=== PATIENT | female | born 1975 | race Caucasian/White ===

== ENCOUNTER 2017-02-19 19:20 | Emergency (ER) | payer BC ==
[~2017-02-19] VITALS: Ht 170.2 cm; Wt 102.1 kg
[~2017-02-19 19:20] MED LIST: AC325T GT; ACHD5005 PO; AMT10T PO; IBP600T1 PO; IBUP-30 PO; MELA1TAB9 PO; SUMA1TAB PO
[2017-02-19] MEDS ORDERED: ONDANSETRON 4 MG/2 ML (SDV) Z0FRAN ONE (19:29)
[2017-02-19] MEDS ORDERED: KETOROLAC 30 MG/ML VIAL IVP ONE (19:30)
[2017-02-19] MEDS ORDERED: fentaNYL INJECTION 100 MCG/2 ML AMP IVP ONE ×2 (19:30→19:45)
[2017-02-19] MEDS ORDERED: CITA20TA7 (19:30)
[2017-02-19] MEDS ORDERED: NS IV 1000 ML 1,000 ML IV SCH (19:30)
--- NOTE | 2017-02-19 19:30 | ED Back Pain ---
General Chief Complaint: Back Problems Stated Complaint: BLOOD IN URINE/ABD AND LOWER BACK PAIN Source of Information: Patient Exam Limitations: No Limitations History of Present Illness Time Seen by Provider: 19:29 Initial Comments To ER with blood in her urine, right sided lower abdomen and right low back pain. This began about 3 days prior with pain in the right side of her back. She felt this was musculoskeletal and saw her chiropractor. About 1 hour prior to arrival here the pain became very intense and was associated with vomiting. No fevers or chills. She has a history of a kidney stone about 6 years ago and this feels similar. Location: Lumbar Spine Timing/Duration: 1-2 Days Severity: Moderate Associated Symptoms: denies symptoms Allergies and Home Medications Allergies Uncoded Allergies: CHLORAPREP (Allergy, Unknown, 02/19/17) Home Medications Citalopram Hydrobromide 20 Mg Tablet, #45 (Reported) Hydrocodone/Acetaminophen 1 Each Tablet, 1 EACH PO Q4H PRN for PAIN-MODERATE, # 20 Prescribed by: MARIA FERNANDA VOGT on 02/19/172012 Ondansetron 8 Mg Tab.rapdis, 8 MG PO Q6H, #10 Prescribed by: MARIA FERNANDA VOGT on 02/19/172012 Tamsulosin HCl 0.4 Mg Cap.er.24h, 0.4 MG PO DAILY, #14 Prescribed by: MARIA FERNANDA VOGT on 02/19/172012 Constitutional: see HPI, No chills, diaphoresis EENTM: see HPI Respiratory: no symptoms reported Cardiovascular: no symptoms reported Genitourinary: see HPI, dysuria Musculoskeletal: no symptoms reported Skin: no symptoms reported Psychiatric/Neurological: No Symptoms Reported Past Kgwabwu-Heecsa-Yitcow Hx Patient Social History Recent Foreign Travel: No Contact w/Someone Who Travel: No Immunizations Up To Date Tetanus Booster (TDap): Less than 5yrs PED Vaccines UTD: Yes Surgeries HX Surgeries: Yes (ORAL SURGERY, BACK SURGERY, BREAST AUGMENTATION) Surgeries: Hysterectomy, Orthopedic, Tubal Ligation Respiratory Hx Respiratory Disorders: No Cardiovascular Hx Cardiac Disorders: No Neurological Hx Neurological Disorders: No Reproductive System Hx Reproductive Disorders: Yes (OVARIAN MASS) Female Reproductive Disorders: Ovarian Cyst Genitourinary Hx Genitourinary Disorders: Yes Genitourinary Disorders: Kidney Stones Gastrointestinal Hx Gastrointestinal Disorders: No Musculoskeletal Hx Musculoskeletal Disorders: Yes Endocrine Hx Endocrine Disorders: No HEENT HX ENT Disorders: No Cancer Hx Cancer: No Psychosocial Hx Psychiatric Problems: Yes Behavioral Health Disorders: Anxiety Integumentary HX Skin/Integumentary Disorder: No Blood Transfusions Hx Blood Disorders: No Adverse Reaction to a Blood Tr: No Physical Exam Vital Signs Vital Sign - Last 12Hours 02/19/17 19:30 Temp 97.1 Pulse 86 Resp 18 B/P (MAP) 154/109 Pulse Ox 99 O2 Delivery Room Air Capillary Refill : General Appearance: WD/WN, Moderate Distress, Other (writhing) HEENT: PERRL/EOMI, TMs Normal Neck: Full Range of Motion, Normal Inspection Cardiovascular: Regular Rate, Rhythm, Normal Peripheral Pulses Respiratory: Normal Breath Sounds, No Accessory Muscle Use, No Respiratory Distress Gastrointestinal: Normal Bowel Sounds, Non Tender, Soft Extremity: Normal Capillary Refill, Normal Inspection Neurologic/Psychiatric: Alert, Oriented x3, No Motor/Sensory Deficits Skin: Normal Color, Warm/Dry Progress/Results/Core Measures Results/Orders Lab Results Laboratory Tests Test 02/19/17 19:25 Range/Units White Blood Count 16.3 H 4.3-11.0 10^3/uL Red Blood Count 4.96 4.35-5.85 10^6/uL Hemoglobin 12.9 11.5-16.0 G/DL Hematocrit 41 35-52 % Mean Corpuscular Volume 83 80-99 FL Mean Corpuscular Hemoglobin 26 25-34 PG Mean Corpuscular Hemoglobin Concent 32 32-36 G/DL Red Cell Distribution Width 16.0 H 10.0-14.5 % Platelet Count 648 H 130-400 10^3/uL Mean Platelet Volume 9.4 7.4-10.4 FL Neutrophils (%) (Auto) 59 42-75 % Lymphocytes (%) (Auto) 32 12-44 % Monocytes (%) (Auto) 6 0-12 % Eosinophils (%) (Auto) 2 0-10 % Basophils (%) (Auto) 1 0-10 % Neutrophils # (Auto) 9.7 H 1.8-7.8 X 10^3 Lymphocytes # (Auto) 5.2 H 1.0-4.0 X 10^3 Monocytes # (Auto) 1.0 0.0-1.0 X 10^3 Eosinophils # (Auto) 0.4 H 0.0-0.3 10^3/uL Basophils # (Auto) 0.1 0.0-0.1 10^3/uL Neutrophils % (Manual) 51 % Lymphocytes % (Manual) 43 % Monocytes % (Manual) 0 % Eosinophils % (Manual) 5 % Basophils % (Manual) 1 % Band Neutrophils 0 % Blood Morphology Comment NORMAL Sodium Level 142 135-145 MMOL/L Potassium Level 3.7 3.6-5.0 MMOL/L Chloride Level 106 98-107 MMOL/L Carbon Dioxide Level 25 21-32 MMOL/L Anion Gap 11 5-14 MMOL/L Blood Urea Nitrogen 11 7-18 MG/DL Creatinine 0.82 0.60-1.30 MG/DL Estimat Glomerular Filtration Rate > 60 BUN/Creatinine Ratio 13 Glucose Level 112 H 70-105 MG/DL Calcium Level 10.0 8.5-10.1 MG/DL Total Bilirubin 0.3 0.1-1.0 MG/DL Aspartate Amino Transf (AST/SGOT) 17 5-34 U/L Alanine Aminotransferase (ALT/SGPT) 19 0-55 U/L Alkaline Phosphatase 93 40-136 U/L Total Protein 7.5 6.4-8.2 GM/DL Albumin 4.3 3.2-4.5 GM/DL My Orders Orders - MARIA FERNANDA VOGT APRN Ua Culture If Indicated (02/19/17 19:22) Urine Bedside (02/19/17 19:22) Cbc With Automated Diff (02/19/17 19:28) Comprehensive Metabolic Panel (02/19/17 19:28) Saline Lock/Iv-Start (02/19/17 19:28) Ketorolac Injection (Toradol Injection) (02/19/17 19:30) Fentanyl Injection (Sublimaze Injection (02/19/17 19:30) Ns Iv 1000 Ml (Sodium Chloride 0.9%) (02/19/17 19:30) Ct Abd/Pelvis Wo(Kidney Stone) (02/19/17 19:28) Manual Differential (02/19/17 19:25) Ondansetron Injection (Zofran Injectio (02/19/17 19:29) Ondansetron Injection (Zofran Injectio (02/19/17 19:45) Fentanyl Injection (Sublimaze Injection (02/19/17 19:45) Rx-Ondansetron Po (Rx-Zofran Po) (02/19/17 20:18) Rx-Oxycodone/Apap 5-325 Mg (Rx-Percocet (02/19/17 20:30) Medications Given in ED Current Medications Medications Dose Ordered Sig/Cherry Route Start Time Stop Time Status Last Admin Dose Admin Fentanyl Citrate 50 mcg ONCE ONCE IVP 02/19/17 19:30 02/19/17 19:31 DC 02/19/17 19:36 50 MCG Fentanyl Citrate 50 mcg ONCE ONCE IVP 02/19/17 19:45 02/19/17 19:46 DC 02/19/17 20:07 50 MCG Ketorolac Tromethamine 30 mg ONCE ONCE IVP 02/19/17 19:30 02/19/17 19:31 DC 02/19/17 19:36 30 MG Ondansetron HCl 4 mg STK-MED ONCE .ROUTE 02/19/17 19:29 02/19/17 19:36 DC 02/19/17 19:37 8 MG Vital Signs/I&O Vital Sign - Last 12Hours 02/19/17 19:30 Temp 97.1 Pulse 86 Resp 18 B/P (MAP) 154/109 Pulse Ox 99 O2 Delivery Room Air Diagnostic Imaging Diagonstic Imaging: CT Comments NAME: GERALD STOVER [facility] REC#: [id number] PT STATUS: REG ER : 1975 PHYSICIAN: MARIA FERNANDA VOGT APRN ADMIT DATE: 02/19/17/ER Draft Date of Exam:02/19/17 CT ABD/PELVIS WO(KIDNEY STONE) PROCEDURE: CT urinary tract, rule out kidney stone. TECHNIQUE: Multiple contiguous axial images were obtained through the abdomen and pelvis without the use of intravenous contrast. INDICATION: Abdominal pain. Hematuria. COMPARISON: None. FINDINGS: There is a 4 mm ureteral stone near the right ureterovesicular junction. This results in only mild right ureteropyelocaliectasis. No other renal or ureteral stones. The lung bases are clear. The partially visualized bilateral breast prostheses. The left ovary is mildly enlarged measuring 4.4 x 2.3 cm. Surgical clips in the pelvis. The liver, gallbladder, pancreas, spleen, adrenals, left kidney, left collecting system and appendix are negative. No free intraperitoneal air or fluid. No lymphadenopathy. No evidence of bowel obstruction. Mild right apex lumbar curvature and degenerative changes. The osseous structures are otherwise unremarkable. IMPRESSION: 4 mm ureteral stone near the right UPJ resulting in mild hydronephrosis. No other renal or ureteral stones. Departure Impression Impression: Primary Impression: Right ureteral stone Disposition: 01 HOME, SELF-CARE Condition: Stable Departure-Patient Inst. Decision time for Depature: 20:06 Referrals: CEZAR RUSSO DO (PCP/Family) Primary Care Physician ANA YANEZ MD Patient Instructions: Kidney Stones (DC) Add. Discharge Instructions: 1. Return to ER for any concerns such as fevers, intolerable pain 2. See your doctor this week for a follow up appointment. 3. Take the medications as directed All discharge instructions reviewed with patient and/or family. Voiced understanding. Scripts Sulfamethoxazole/Trimethoprim (Bactrim Ds Tablet) 1 Each Tablet 1 EACH PO BID, #10 TAB Prov: MARIA FERNANDA VOGT APRN 02/19/17 Ondansetron (Zofran Odt) 8 Mg Tab.rapdis 8 MG PO Q6H, #10 TAB Prov: MARIA FERNANDA VOGT APRN 02/19/17 Hydrocodone/Acetaminophen (Cheraw 5-325 Tablet) 1 Each Tablet 1 EACH PO Q4H Y for PAIN-MODERATE, #20 TAB Prov: MARIA FERNANDA VOGT APRN 02/19/17 Tamsulosin HCl (Tamsulosin HCl) 0.4 Mg Cap.er.24h 0.4 MG PO DAILY, #14 CAP Prov: MARIA FERNANDA VOGT APRN 02/19/17 Work/School Note: Work Release Form Date Seen in the Emergency Department: Feb 19, 2017 Return to Work: Feb 22, 2017 Restrictions: No Restrictions MARIA FERNANDA VOGT APRN Feb 19, 2017 19:30
[2017-02-19 19:34] LABS: BASOPHILS # (AUTO) 0.1 10^3/uL (0.0-0.1); BASOPHILS % (AUTO) 1 % (0-10); EOSINOPHILS # (AUTO) 0.4 10^3/uL (0.0-0.3); EOSINOPHILS % (AUTO) 2 % (0-10); LYMPHOCYTES # (AUTO) 5.2 X 10^3 (1.0-4.0); LYMPHOCYTES % (AUTO) 32 % (12-44); MEAN CORPUSCULAR HEMOGLOBIN 26 PG (25-34); MEAN CORPUSCULAR HGB CONC 32 G/DL (32-36); MEAN CORPUSCULAR VOLUME 83 FL (80-99); MEAN PLATELET VOLUME 9.4 FL (7.4-10.4); MONOCYTES % (AUTO) 6 % (0-12); NEUTROPHILS # (AUTO) 9.7 X 10^3 (1.8-7.8); NEUTROPHILS % (AUTO) 59 % (42-75); PLATELET COUNT 648 10^3/uL (130-400); RED BLOOD COUNT 4.96 10^6/uL (4.35-5.85); WHITE BLOOD COUNT 16.3 10^3/uL (4.3-11.0)
[2017-02-19] MEDS ORDERED: ONDANSETRON 4 MG/2 ML (SDV) Z0FRAN IVP ONE (19:45)
[2017-02-19 19:52] LABS: BAND NEUTROPHILS 0 %; LYMPHOCYTES % (MANUAL) 43 %; NEUTROPHILS % (MANUAL) 51 %
[2017-02-19 19:53] LABS: BASOPHILS % (MANUAL) 1 %; EOSINOPHILS % (MANUAL) 5 %
[2017-02-19 19:54] LABS: ALANINE AMINOTRANSFERASE 19 U/L (0-55); ALBUMIN 4.3 GM/DL (3.2-4.5); ANION GAP 11 MMOL/L (5-14); ASPARTATE AMINO TRANSFERASE 17 U/L (5-34); BILIRUBIN,TOTAL 0.3 MG/DL (0.1-1.0); BLOOD UREA NITROGEN 11 MG/DL (7-18); BUN/CREATININE RATIO 13; CARBON DIOXIDE 25 MMOL/L (21-32); CHLORIDE 106 MMOL/L (98-107); CREATININE SERUM 0.82 MG/DL (0.60-1.30); GFR ESTIMATED > 60; GLUCOSE 112 MG/DL (70-105); POTASSIUM 3.7 MMOL/L (3.6-5.0); SODIUM 142 MMOL/L (135-145); TOTAL PROTEIN 7.5 GM/DL (6.4-8.2)
--- NOTE | 2017-02-19 20:03 | Diagnostic Imaging Report ---
PROCEDURE: CT urinary tract, rule out kidney stone. TECHNIQUE: Multiple contiguous axial images were obtained through the abdomen and pelvis without the use of intravenous contrast. INDICATION: Abdominal pain. Hematuria. COMPARISON: None. FINDINGS: There is a 4 mm ureteral stone near the right ureterovesicular junction. This results in only mild right ureteropyelocaliectasis. No other renal or ureteral stones. The lung bases are clear. The partially visualized bilateral breast prostheses. The left ovary is mildly enlarged measuring 4.4 x 2.3 cm. Surgical clips in the pelvis. The liver, gallbladder, pancreas, spleen, adrenals, left kidney, left collecting system and appendix are negative. No free intraperitoneal air or fluid. No lymphadenopathy. No evidence of bowel obstruction. Mild right apex lumbar curvature and degenerative changes. The osseous structures are otherwise unremarkable. IMPRESSION: 4 mm ureteral stone near the right UVJ resulting in mild hydronephrosis. No other renal or ureteral stones. Dictated by: Dictated on workstation # [id number]
[2017-02-19] MEDS ORDERED: TAMS0.4C2 PO (20:13)
[2017-02-19] MEDS ORDERED: ONDA8TAB9 PO (20:13)
[2017-02-19] MEDS ORDERED: HYDR-757 PO (20:13)
[2017-02-19] MEDS ORDERED: RX-ONDANSETRON 4 MG ODT (ZOFRAN) PPK #4 PO STA (20:18)
[2017-02-19] MEDS ORDERED: SULF1TAB35 PO (20:19)
[2017-02-19] MEDS ORDERED: RX-OXYCODONE/APAP 5-325 MG #4 TAB PK PO PRN (20:30)
--- NOTE | 2017-02-19 20:44 | Diagnostic Imaging Report ---
EXAM: ABDOMEN/KUB 1VIEW INDICATION: Abdominal pain. COMPARISON: CT abdomen and pelvis without contrast performed at 7:49 PM. FINDINGS: Nonspecific bowel gas pattern. Surgical clips in the pelvis. Punctate radiopaque body in the right pelvis may correlate to the known ureteral stone at the right UVJ. Acute osseous findings. IMPRESSION: Punctate radiopaque body in the right pelvis may correlate to the known 4 mm ureteral stone in the right ureterovesicular junction. Dictated by: Dictated on workstation # [id number]
[2017-02-19 20:53] LABS: BILIRUBIN,URINE NEGATIVE (NEGATIVE); KETONES,URINE NEGATIVE (NEGATIVE); LEUKOCYTE ESTERASE ,URINE 1+ (NEGATIVE); NITRITE,URINE NEGATIVE (NEGATIVE); PH,URINE 6 (5-9); PROTEIN,URINE 1+ (NEGATIVE); UROBILINOGEN,URINE NORMAL (NORMAL)
[2017-02-19 21:13] LABS: WBC,URINE 0-2 /HPF
[2017-02-19 21:20] VITALS: BP 140/73
== END 2017-02-19 21:20 | disposition home or self-care (01) ==
LOC: EDUNIT# 19:20 → ER 19:21
DX: N20.1 Calculus of ureter (principal); F41.9 Anxiety disorder, unspecified; Z87.39 Personal history of other diseases of the musculoskeletal system and connective tissue; Z87.442 Personal history of urinary calculi; Z87.42 Personal history of other diseases of the female genital tract; Z98.51 Tubal ligation status; Z90.710 Acquired absence of both cervix and uterus; Z98.890 Other specified postprocedural states
CPT/HCPCS: 36415; 74000; 74176; 80053; 81000; 84703; 85007; 85027; 96361; 96374; 96375; 96376

== ENCOUNTER 2017-06-18 13:21 | Day surgery (SDC) | payer BC ==
[~2017-06-18] VITALS: Ht 170.2 cm; Wt 102.6 kg
[~2017-06-18 13:21] MED LIST changes: +CITA20TA7 PO; +HYDR-757 PO; +ONDA8TAB9 PO; +SULF1TAB35 PO; +TAMS0.4C2 PO
[2017-06-18 13:44] LABS: BASOPHILS # (AUTO) 0.1 10^3/uL (0.0-0.1); BASOPHILS % (AUTO) 1 % (0-10); EOSINOPHILS # (AUTO) 0.6 10^3/uL (0.0-0.3); EOSINOPHILS % (AUTO) 4 % (0-10); LYMPHOCYTES # (AUTO) 3.2 X 10^3 (1.0-4.0); LYMPHOCYTES % (AUTO) 23 % (12-44); MEAN CORPUSCULAR HEMOGLOBIN 28 PG (25-34); MEAN CORPUSCULAR HGB CONC 33 G/DL (32-36); MEAN CORPUSCULAR VOLUME 84 FL (80-99); MEAN PLATELET VOLUME 9.1 FL (7.4-10.4); MONOCYTES # (AUTO) 1.1 X 10^3 (0.0-1.0); MONOCYTES % (AUTO) 8 % (0-12); NEUTROPHILS # (AUTO) 9.2 X 10^3 (1.8-7.8); NEUTROPHILS % (AUTO) 65 % (42-75); PLATELET COUNT 503 10^3/uL (130-400); RED BLOOD COUNT 4.68 10^6/uL (4.35-5.85); RED CELL DISTRIBUTION WIDTH 15.3 % (10.0-14.5); WHITE BLOOD COUNT 14.1 10^3/uL (4.3-11.0)
--- NOTE | 2017-06-18 13:45 | ED Chest Pain ---
General Chief Complaint: Chest Pain Stated Complaint: CP,PRESSURE Source: patient Exam Limitations: no limitations History of Present Illness Time seen by provider: 13:27 Initial Comments Here with report of chest pressure that feels like it squeezing. Associated with some nausea but no vomiting. Irving weak but no sweating or shortness of breath. Onset low work approximately 2 hours ago and has persisted. 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 NTG SL MATHEMATICS TECHNICIAN: No Associated Symptoms: No back pain, No fever/chills, nausea/vomiting, No shortness of breath, No weakness Allergies and Home Medications Allergies Uncoded Allergies: CHLORAPREP (Allergy, Unknown, 02/19/17) Home Medications Citalopram Hydrobromide 20 Mg Tablet, #45 (Reported) Hydrocodone/Acetaminophen 1 Each Tablet, 1 EACH PO Q4H PRN for PAIN-MODERATE, # 20 Prescribed by: MARIA FERNANDA VOGT on 02/19/172012 Ondansetron 8 Mg Tab.rapdis, 8 MG PO Q6H, #10 Prescribed by: MARIA FERNANDA VOGT on 02/19/172012 Sulfamethoxazole/Trimethoprim 1 Each Tablet, 1 EACH PO BID, #10 Prescribed by: MARIA FERNANDA VOGT on 02/19/17 2019 Tamsulosin HCl 0.4 Mg Cap.er.24h, 0.4 MG PO DAILY, #14 Prescribed by: MARIA FERNANDA VOGT on 02/19/172012 Review of Systems Constitutional: see HPI EENTM: No Symptoms Reported Respiratory: No Symptoms Reported Cardiovascular: See HPI, Chest Pain, Denies Edema, Denies Irregular Heart Rate , Denies Lightheadedness Gastrointestinal: Denies Abdominal Pain, Denies Diarrhea, Denies Nausea, Denies Vomiting Genitourinary: No Symptoms Reported Musculoskeletal: no symptoms reported Skin: no symptoms reported All Other Systems Reviewed Negative Unless Noted: Yes Past Ravwidy-Yxcfps-Thbmvk Hx Patient Social History Alcohol Use: Occasionally Uses Alcohol Beverage of Choice: Wine Recreational Drug Use: No Smoking Status: Never a Smoker 2nd Hand Smoke Exposure: No Recent Foreign Travel: No Contact w/Someone Who Travel: No Recent Hopitalizations: No Immunizations Up To Date Tetanus Booster (TDap): Less than 5yrs PED Vaccines UTD: Yes Seasonal Allergies Seasonal Allergies: No Surgeries History of Surgeries: Yes (ORAL SURGERY, BACK SURGERY, BREAST AUGMENTATION) Surgeries: Hysterectomy, Orthopedic, Tubal Ligation Respiratory History of Respiratory Disorde: No Cardiovascular History of Cardiac Disorders: No Neurological History of Neurological Disord: No Reproductive System Hx Reproductive Disorders: Yes (OVARIAN MASS) Female Reproductive Disorders: Ovarian 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 Genitourinary History of Genitourinary Disor: Yes Genitourinary Disorders: Kidney Stones Gastrointestinal History of Gastrointestinal Di: No Musculoskeletal History of Musculoskeletal Dis: No Endocrine History of Endocrine Disorders: No HEENT History of HEENT Disorders: No Cancer History of Cancer: No Psychosocial History of Psychiatric Problem: Yes Behavioral Health Disorders: Anxiety Integumentary History of Skin or Integumenta: No Blood Transfusions History of Blood Disorders: No Adverse Reaction to a Blood Tr: No Reviewed Nursing Assessment Reviewed/Agree w Nursing PMH: Yes Physical Exam Vital Signs Vital Sign - Last 12Hours 06/18/17 13:21 Temp 97.4 Pulse 86 Resp 26 B/P (MAP) 149/104 Pulse Ox 98 Capillary Refill : General Appearance: No Apparent Distress, WD/WN HEENT: PERRL/EOMI, Pharynx Normal Neck: Non Tender, Supple Respiratory: Lungs Clear, Normal Breath Sounds Cardiovascular: Regular Rate, Rhythm, No Murmur Gastrointestinal: Non Tender, Soft Extremity: Normal Range of Motion, Non Tender Neurologic/Psychiatric: Alert, Oriented x3 Skin: Normal Color, Warm/Dry Progress/Results/Core Measures Results/Orders Lab Results Laboratory Tests Test 06/18/17 13:35 Range/Units White Blood Count 14.1 H 4.3-11.0 10^3/uL Red Blood Count 4.68 4.35-5.85 10^6/uL Hemoglobin 12.9 11.5-16.0 G/DL Hematocrit 39 35-52 % Mean Corpuscular Volume 84 80-99 FL Mean Corpuscular Hemoglobin 28 25-34 PG Mean Corpuscular Hemoglobin Concent 33 32-36 G/DL Red Cell Distribution Width 15.3 H 10.0-14.5 % Platelet Count 503 H 130-400 10^3/uL Mean Platelet Volume 9.1 7.4-10.4 FL Neutrophils (%) (Auto) 65 42-75 % Lymphocytes (%) (Auto) 23 12-44 % Monocytes (%) (Auto) 8 0-12 % Eosinophils (%) (Auto) 4 0-10 % Basophils (%) (Auto) 1 0-10 % Neutrophils # (Auto) 9.2 H 1.8-7.8 X 10^3 Lymphocytes # (Auto) 3.2 1.0-4.0 X 10^3 Monocytes # (Auto) 1.1 H 0.0-1.0 X 10^3 Eosinophils # (Auto) 0.6 H 0.0-0.3 10^3/uL Basophils # (Auto) 0.1 0.0-0.1 10^3/uL Neutrophils % (Manual) 68 % Lymphocytes % (Manual) 20 % Monocytes % (Manual) 7 % Eosinophils % (Manual) 3 % Band Neutrophils 2 % Blood Morphology Comment NORMAL Prothrombin Time 12.6 12.2-14.7 SEC INR Comment 0.9 0.8-1.4 Activated Partial Thromboplast Time 26 24-35 SEC D-Dimer < 0.27 0.00-0.49 UG/ML Sodium Level 141 135-145 MMOL/L Potassium Level 3.8 3.6-5.0 MMOL/L Chloride Level 106 98-107 MMOL/L Carbon Dioxide Level 28 21-32 MMOL/L Anion Gap 7 5-14 MMOL/L Blood Urea Nitrogen 12 7-18 MG/DL Creatinine 0.75 0.60-1.30 MG/DL Estimat Glomerular Filtration Rate > 60 BUN/Creatinine Ratio 16 Glucose Level 85 70-105 MG/DL Calcium Level 9.1 8.5-10.1 MG/DL Magnesium Level 2.2 1.8-2.4 MG/DL Total Bilirubin 0.2 0.1-1.0 MG/DL Aspartate Amino Transf (AST/SGOT) 13 5-34 U/L Alanine Aminotransferase (ALT/SGPT) 14 0-55 U/L Alkaline Phosphatase 100 40-136 U/L Myoglobin 29.2 10.0-92.0 NG/ML Troponin I < 0.30 <0.30 NG/ML Total Protein 7.1 6.4-8.2 GM/DL Albumin 4.1 3.2-4.5 GM/DL My Orders Orders - CANELO AGUIRRE MD Ekg Tracing (06/18/17 13:22) Fibrin Degradation Products (06/18/17 14:15) Aspirin Chewable Tablet (Baby Aspirin Ch (06/18/17 14:45) Nitroglycerin 0.4 Mg Btl 25's (Nitrostat (06/18/17 14:45) Nitroglycerin 0.4 Mg Btl 25's (Nitrostat (06/18/17 14:33) Aspirin Chewable Tablet (Baby Aspirin Ch (06/18/17 14:33) Medications Given in ED Current Medications Medications Dose Ordered Sig/Cherry Route Start Time Stop Time Status Last Admin Dose Admin Aspirin 324 mg ONCE ONCE PO 06/18/17 14:45 06/18/17 14:46 DC 06/18/17 14:46 324 MG Nitroglycerin 0.4 mg UD PRN SL 06/18/17 14:45 06/18/17 15:33 0.4 MG Vital Signs/I&O Vital Sign - Last 12Hours 06/18/17 13:21 Temp 97.4 Pulse 86 Resp 26 B/P (MAP) 149/104 Pulse Ox 98 Progress Note : Progress Note Seen and evaluated. IV, labs, EKG and chest x-ray ordered. ASA 324 mg by mouth and then try some sublingual ordered. Monitor patient. The nitroglycerin did not completely resolve the pain. Repeat nitroglycerin. I did discuss the case with Dr. Robledo and he accepts patient for admission, observation status. I did discuss the case with Dr. Kern and he accepts patient in consult. He is requesting Lexiscan stress test in the morning as well as echocardiogram either today or tomorrow morning. This was ordered. Discussed with patient and family who agree with plan. ECG Initial ECG Impression Date: Jun 18, 2017 Initial ECG Impression Time: 13:20 Initial ECG Rate: 79 Initial ECG Rhythm: Normal Sinus Initial ECG Impression: Normal Comment Sinus rhythm with normal axis. No evidence of ST elevation MD. No previous available for comparison. Interpreted by me. Diagnostic Imaging Diagonstic Imaging: Xray Plain Films/CT/US/NM/MRI: chest Comments NAME: GERALD STOVER MED REC#: [id number] PT STATUS: REG ER : 1975 PHYSICIAN: MARIA FERNANDA VOGT APRN ADMIT DATE: 06/18/17/ER Signed Date of Exam: 06/18/17 CHEST 1 VIEW, AP/PA ONLY INDICATION: Chest pain. Portable chest 1:44 PM. Heart size and pulmonary vascularity are normal. Lungs are clear. There are no effusions or pneumothoraces. IMPRESSION: Negative chest. Dictated by: Dictated on workstation # [id number] Dict: 06/18/171413 Trans: 06/18/171418 Interpreted by: CANELO DOUGLAS MD Electronically signed by: CANELO DOUGLAS MD 06/18/171418 Departure Communication (Admissions) Time/Spoke to Admitting Phy: 15:25 Time/Spoke to Consulting Phy: 15:28 Impression Impression: Primary Impression: Chest pain Qualified Codes: R07.9 - Chest pain, unspecified Disposition: 09 ADMITTED INPATIENT Condition: Stable Admissions Decision to Admit Reason: Admit from ER (General) Decision to Admit/Date: Jun 18, 2017 Time/Decision to Admit Time: 15:25 Departure-Patient Inst. Referrals: CEZAR RUSSO DO (PCP/Family) Primary Care Physician CANELO AGUIRRE MD Jun 18, 2017 13:44
[2017-06-18 13:54] LABS: INR 0.9 (0.8-1.4); PROTHROMBIN TIME PATIENT 12.6 SEC (12.2-14.7)
[2017-06-18 14:03] LABS: ALANINE AMINOTRANSFERASE 14 U/L (0-55); ALBUMIN 4.1 GM/DL (3.2-4.5); ANION GAP 7 MMOL/L (5-14); ASPARTATE AMINO TRANSFERASE 13 U/L (5-34); BILIRUBIN,TOTAL 0.2 MG/DL (0.1-1.0); BLOOD UREA NITROGEN 12 MG/DL (7-18); BUN/CREATININE RATIO 16; CALCIUM 9.1 MG/DL (8.5-10.1); CARBON DIOXIDE 28 MMOL/L (21-32); CHLORIDE 106 MMOL/L (98-107); CREATININE SERUM 0.75 MG/DL (0.60-1.30); GFR ESTIMATED > 60; GLUCOSE 85 MG/DL (70-105); MAGNESIUM 2.2 MG/DL (1.8-2.4); POTASSIUM 3.8 MMOL/L (3.6-5.0); SODIUM 141 MMOL/L (135-145); TOTAL PROTEIN 7.1 GM/DL (6.4-8.2)
[2017-06-18 14:05] LABS: BAND NEUTROPHILS 2 %; LYMPHOCYTES % (MANUAL) 20 %; NEUTROPHILS % (MANUAL) 68 %
[2017-06-18 14:06] LABS: EOSINOPHILS % (MANUAL) 3 %
[2017-06-18 14:11] LABS: MYOGLOBIN SERUM 29.2 NG/ML (10.0-92.0)
--- NOTE | 2017-06-18 14:15 | Diagnostic Imaging Report ---
INDICATION: Chest pain. Portable chest 1:44 PM. Heart size and pulmonary vascularity are normal. Lungs are clear. There are no effusions or pneumothoraces. IMPRESSION: Negative chest. Dictated by: Dictated on workstation # [id number]
[2017-06-18] MEDS ORDERED: ASPIRIN 81 MG CHEW (CHILDREN'S ASA) ONE (14:33)
[2017-06-18] MEDS ORDERED: NITROGLYCERIN 0.4 MG SL TABS BTL 25'S SL ONE (14:33)
[2017-06-18] MEDS ORDERED: ASPIRIN 81 MG CHEW (CHILDREN'S ASA) PO ONE (14:45)
[2017-06-18] MEDS: NITROGLYCERIN 0.4 MG SL TABS BTL 25'S SL PRN ×2 (14:45→15:33)
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
[2017-06-18 16:37] VITALS: BP 142/87
[2017-06-18] MEDS ORDERED: morphine INJ 4 MG/ML 1 ML (VIAL/SYRINGE) IV PRN (17:00)
[2017-06-18] MEDS ORDERED: NS IV 1000 ML 1,000 ML IV SCH (17:00)
[2017-06-18] MEDS ORDERED: ONDANSETRON 4 MG/2 ML (SDV) Z0FRAN IV PRN (17:00)
[2017-06-18] MEDS ORDERED: CATHETER FLUSH 10 ML SYR IV PRN (17:00)
[2017-06-18] MEDS ORDERED: NITROGLYCERIN 0.4 MG SL TABS BTL 25'S SL PRN (17:00)
[2017-06-18] MEDS ORDERED: ACET-2422 PO (17:08)
[2017-06-18] MEDS ORDERED: IBUP-2055 PO (17:08)
[2017-06-18 17:50] LABS: CHOLESTEROL 148 MG/DL (< 200); CREATINE KINASE 72 U/L (29-168); DIRECT LDL 71 MG/DL (1-129); TRIGLYCERIDES 88 MG/DL (<150); VLDL CHOLESTEROL 18 MG/DL (5-40)
[2017-06-18 18:09] LABS: MYOGLOBIN SERUM 33.5 NG/ML (10.0-92.0); TROPONIN I < 0.30 NG/ML (<0.30)
[2017-06-18 19:25] VITALS: BP 134/77
[2017-06-18] MEDS ORDERED: ACETAMINOPHEN 500 MG TAB (TYLENOL) PO PRN (20:15)
[2017-06-18] MEDS ORDERED: INFLUENZA TRIvalent 2017-2018 0.5 ML/45 MCG SYR IM ONE (20:30)
[2017-06-19 00:05] VITALS: BP 123/71
[2017-06-19] MEDS: NS IV 1000 ML 1,000 ML IV SCH ×3 (00:07→16:02)
[2017-06-19 03:47] VITALS: BP 122/71
[2017-06-19 06:51] LABS: BASOPHILS # (AUTO) 0.1 10^3/uL (0.0-0.1); BASOPHILS % (AUTO) 1 % (0-10); EOSINOPHILS # (AUTO) 0.4 10^3/uL (0.0-0.3); EOSINOPHILS % (AUTO) 6 % (0-10); LYMPHOCYTES # (AUTO) 2.4 X 10^3 (1.0-4.0); LYMPHOCYTES % (AUTO) 31 % (12-44); MEAN CORPUSCULAR HEMOGLOBIN 27 PG (25-34); MEAN CORPUSCULAR HGB CONC 33 G/DL (32-36); MEAN CORPUSCULAR VOLUME 84 FL (80-99); MEAN PLATELET VOLUME 9.5 FL (7.4-10.4); MONOCYTES # (AUTO) 0.6 X 10^3 (0.0-1.0); MONOCYTES % (AUTO) 8 % (0-12); NEUTROPHILS # (AUTO) 4.2 X 10^3 (1.8-7.8); NEUTROPHILS % (AUTO) 55 % (42-75); PLATELET COUNT 462 10^3/uL (130-400); RED BLOOD COUNT 4.45 10^6/uL (4.35-5.85); RED CELL DISTRIBUTION WIDTH 15.2 % (10.0-14.5); WHITE BLOOD COUNT 7.7 10^3/uL (4.3-11.0)
[2017-06-19 07:13] LABS: ALANINE AMINOTRANSFERASE 14 U/L (0-55); ALBUMIN 3.6 GM/DL (3.2-4.5); ANION GAP 7 MMOL/L (5-14); ASPARTATE AMINO TRANSFERASE 11 U/L (5-34); BILIRUBIN,TOTAL 0.4 MG/DL (0.1-1.0); BLOOD UREA NITROGEN 11 MG/DL (7-18); BUN/CREATININE RATIO 17; CALCIUM 8.6 MG/DL (8.5-10.1); CARBON DIOXIDE 24 MMOL/L (21-32); CHLORIDE 109 MMOL/L (98-107); CHOLESTEROL 138 MG/DL (< 200); CREATININE SERUM 0.66 MG/DL (0.60-1.30); DIRECT LDL 71 MG/DL (1-129); GFR ESTIMATED > 60; GLUCOSE 97 MG/DL (70-105); POTASSIUM 3.8 MMOL/L (3.6-5.0); SODIUM 140 MMOL/L (135-145); TOTAL PROTEIN 5.9 GM/DL (6.4-8.2); TRIGLYCERIDES 120 MG/DL (<150); VLDL CHOLESTEROL 24 MG/DL (5-40)
[2017-06-19 08:00] VITALS: BP 137/80
[2017-06-19] MEDS ORDERED: REGADENOSON 0.4 MG/5 ML SYR (LEXISCAN) IV ONE ×2 (08:46→09:15)
[2017-06-19] MEDS: ASPIRIN E.C. 325 MG (ECOTRIN) TABLET PO SCH (10:51)
--- NOTE | 2017-06-19 11:25 | Consultation-Cardiology ---
HPI-Cardiology Cardiology Consultation: Date of Consultation 06/19/17 Date of Admission Attending Physician Carter Lentz MD Admitting Physician Shmuel Nunez DO Consulting Physician Yulissa KERN MD HPI: Time Seen by Provider: 09:30 Chief Complaint: Chest pain This is a 42-year-old lady with complain of chest pain. The chest pain is described as heaviness. Still continues to have mild chest heaviness when I saw the patient. Denies shortness of breath or other cardiac symptoms. Denies any exacerbating or relieving factors. There is no radiation. Intensity is mild. Associated with mild nausea and weakness. Review of Systems-Cardiology Review of Systems Constitutional: No As described under HPI, No no symptoms reported, No chills, No fever, No lightheadedness, No malaise, No tiredness, No weight loss, No weight gain, No other Eyes: No As described under HPI, No no symptoms reported, No blindness, No blurred vision, No contact lenses, No drainage, No decreased acuity, No foreign body sensation, No glasses, No inflammation, No pain, No photophobia, No previous injury, No shadows, No tunnel vision, No other, No vision change Ears/Nose/Throat: No As described under HPI, No no symptoms reported, No chronic hearing loss, No epistaxis, No ear discharge, No ear pain, No loose teeth, No mouth pain, No mouth swelling, No nasal drainage, No nose pain, No recent hearing loss, No throat pain, No throat swelling, No ulcerations, No other Respiratory: No no symptoms reported, No As described under HPI, No cough, No orthopnea, No shortness of breath, No SOB with excertion, No SOB at rest, No stridor, No wheezing, No other Cardiovascular: chest pain Gastrointestinal: No no symptoms reported, No As described under HPI, No abdomen distended, No abdominal pain, No blood streaked bowels, No constipation , No diarrhea, No difficulty swallowing, No nausea, No poor appetite, No poor fluid intake, No rectal bleeding, No vomiting, No other, No nausea/vomiting/ diarrhea, No stool coloration changes Genitourinary: No no symptoms reported, No As described under HPI, No burning, No dysuria, No discharge, No frequency, No flank pain, No hematuria, No incontinence, No pain, No urgency, No other, No urine frequency changes, No urine coloration changes Musculoskeletal: No no symptoms reported, No As describe under HPI, No back pain, No gout, No joint pain, No joint swelling, No muscle pain, No muscle stiffness, No neck pain, No other Skin: No no symptoms reported, No As described under HPI, No change in color, No change in hair/nails, No dryness, No lesions, No lumps, No rash, No other, No skin related problems, No ulcerations, No rash on exposed areas, No ulcerations on exposed areas Psychiatric/Neurological: No no symptoms reported, No As described under HPI, No anxiety, No depression, No emotional problems, No headache, No numbness, No pre-existing deficit, No seizure, No tingling, No tremors, No weakness, No other , No focal weakness, No syncope Hematologic: No no symptoms reported, No As described under HPI, No anemia, No blood clots, No easy bleeding, No easy bruising, No swollen glands, No other, No bleeding abnormalities All Other Systems Reviewed Negative Unless Noted: Yes IUN-[id number]-Ufypao Hx Patient Social History Alcohol Use: Occasionally Uses Recreational Drug Use: No Smoking Status: Never a Smoker 2nd Hand Smoke Exposure: No Recent Foreign Travel: No Recent Infectious Disease Expo: No Hospitalization with Isolation: Denies Physical Abuse Screen: No Sexual Abuse: No Immunizations Up To Date Tetanus Booster (TDap): Less than 5yrs Past Medical History PMH As described under Assessment. Allergies and Home Medications Allergies Uncoded Allergies: CHLORAPREP (Allergy, Unknown, 06/18/17) per patient Home Medications Acetaminophen 650 Mg Tablet.er, 650 MG PO DAILY PRN for HEADACHE, (Reported) TAKES ALONG WITH IBUPROFEN Citalopram Hydrobromide 20 Mg Tablet, 30 MG PO DAILY, (Reported) TAKES 1 & 1/2 OF A (20 MG) TABLET Ibuprofen 200 Mg Tablet, 600 MG PO DAILY PRN for HEADACHE, (Reported) TAKES 3 (200 MG) TABLETS / TAKES ALONG WITH ACETAMINOPHEN Physical Exam-Cardiology Physical Exam Vital Signs/I&O Vital Sign - Last 12Hours 06/19/17 06/19/17 06/19/17 00:05 01:00 03:47 Temp 98.4 97.9 Pulse 66 73 70 Resp 16 16 B/P (MAP) 123/71 122/71 Pulse Ox 97 95 O2 Delivery Room Air Room Air Capillary Refill : Less Than 3 SecondsLess Than 3 Seconds Constitutional: No appears stated age, No AAO x 3, No apparent distress, No PERRL, No well-developed, No well-nourished, No other HEENT: No PERRL, No normal ENT inspection, No TMs normal, No pharynx normal, No scleral icterus (R), No scleral icterus (L), No pale conjunctivae (R), No pale conjunctivae (L), No photophobia, No TM abnormal (R), No TM abnormal (L), No pharyngeal erythema, No tonsillar exudate, No other, No discharge, No EOMI, No hearing is well preserved, No hard of hearing, No oral hygience is good, No ulceration, No xanthelasmas are seen Neck: No non-tender, No full range of motion, No supple, No normal inspection, No carotid bruit, No limited range of motion, No lymphadenopathy (R), No lymphadenopathy (L), No tender lateral, No tender midline, No thyromegaly, No other, No carotid pulses are 2 + bilaterally, No with good upstrokes Respiratory: No accessory muscle use, No respiratory distress, No chest tender , No chest expansion is symmetric, No chest is bilaterally symmetric, No lungs clear to percussion, No lungs clear to auscultation, No crackles, No rhonchi, No rales, No stridor, No wheezing, No pleural rub, No other Cardiovascular: No regular rate-rhythm, No irregularly irregular, No extra beats, No parasternal heave is noted, No JVD, No edema, No bradycardia, No tachycardia, No point of maximal impulse, No cardiac thrills are palpable, No S1 and S2, No gallop/S3, No gallop/S4, No diastolic murmur, No systolic murmur, No friction rub, No click, No other Gastrointestinal: No tender, No soft, No round, No distended, No pulsatile mass , No organomegaly, No guarding, No rebound, No tenderness, No hernia, No mass, No audible bowel sounds, No abnormal bowel sounds, No abdominal bruits, No spleenomegaly, No other Rectal: deferred Extremities: No normal range of motion, No non-tender, No normal inspection, No pedal edema, No calf tenderness, No normal capillary refill, No pelvis stable , No calf tenderness, No inflammation, No pedal edema, No slow capillary refill , No swelling, No other, No abrasion, No clubbing, No cyanosis, No ecchymosis, No laceration, No no lower extremity edema bilateral, No significant edema, No tenderness, No wound Neurologic/Psychiatric: No pump and still operator II-XII nml as tested, No no motor/sensory deficits, No alert, No normal mood/affect, No oriented x 3, No abnormal cerebellar tests, No abnormal pump and still operator II-XII, No abnormal gait, No aphasia, No EOM palsy, No facial droop, No motor weakness, No sensory deficit, No depressed affect, No disoriented x 3, No other, No grossly intact, No power is 5/5 both on sides Skin: No normal color, No warm/dry, No cyanosis, No cool, No diaphoresis, No damp, No ecchymosis, No jaundice, No mottled, No pallor, No rash, No tattoos/ piercings, No ulcerations, No rash on exposed areas, No ulcerations on exposed areas, No other Data Review Labs Laboratory Tests 06/18/17 13:35: White Blood Count 14.1H, Red Blood Count 4.68, Hemoglobin 12.9, Hematocrit 39, Mean Corpuscular Volume 84, Mean Corpuscular Hemoglobin 28, Mean Corpuscular Hemoglobin Concent 33, Red Cell Distribution Width 15.3H, Platelet Count 503H, Mean Platelet Volume 9.1, Neutrophils (%) (Auto) 65, Lymphocytes (%) (Auto) 23, Monocytes (%) (Auto) 8, Eosinophils (%) (Auto) 4, Basophils (%) (Auto) 1, Neutrophils # (Auto) 9.2H, Lymphocytes # (Auto) 3.2, Monocytes # (Auto) 1.1H, Eosinophils # (Auto) 0.6H, Basophils # (Auto) 0.1, Neutrophils % (Manual) 68, Lymphocytes % (Manual) 20, Monocytes % (Manual) 7, Eosinophils % (Manual) 3, Band Neutrophils 2, Blood Morphology Comment NORMAL, Prothrombin Time 12.6, INR Comment 0.9, Activated Partial Thromboplast Time 26, D-Dimer < 0.27, Sodium Level 141, Potassium Level 3.8, Chloride Level 106, Carbon Dioxide Level 28, Anion Gap 7, Blood Urea Nitrogen 12, Creatinine 0.75, Estimat Glomerular Filtration Rate > 60, BUN/Creatinine Ratio 16, Glucose Level 85, Calcium Level 9.1, Magnesium Level 2.2, Total Bilirubin 0.2, Aspartate Amino Transf (AST/SGOT ) 13, Alanine Aminotransferase (ALT/SGPT) 14, Alkaline Phosphatase 100, Myoglobin 29.2, Troponin I < 0.30, Total Protein 7.1, Albumin 4.1 06/18/17 17:15: Myoglobin 33.5, Troponin I < 0.30, Total Creatine Kinase 72, Triglycerides Level 88, Cholesterol Level 148, LDL Cholesterol Direct 71, VLDL Cholesterol 18 , HDL Cholesterol 45 06/19/17 05:55: White Blood Count 7.7, Red Blood Count 4.45, Hemoglobin 12.2, Hematocrit 37, Mean Corpuscular Volume 84, Mean Corpuscular Hemoglobin 27, Mean Corpuscular Hemoglobin Concent 33, Red Cell Distribution Width 15.2H, Platelet Count 462H, Mean Platelet Volume 9.5, Neutrophils (%) (Auto) 55, Lymphocytes (%) (Auto) 31, Monocytes (%) (Auto) 8, Eosinophils (%) (Auto) 6, Basophils (%) (Auto) 1, Neutrophils # (Auto) 4.2, Lymphocytes # (Auto) 2.4, Monocytes # (Auto) 0.6, Eosinophils # (Auto) 0.4H, Basophils # (Auto) 0.1, Sodium Level 140, Potassium Level 3.8, Chloride Level 109H, Carbon Dioxide Level 24, Anion Gap 7, Blood Urea Nitrogen 11, Creatinine 0.66, Estimat Glomerular Filtration Rate > 60, BUN/ Creatinine Ratio 17, Glucose Level 97, Calcium Level 8.6, Total Bilirubin 0.4, Aspartate Amino Transf (AST/SGOT) 11, Alanine Aminotransferase (ALT/SGPT) 14, Alkaline Phosphatase 84, Total Protein 5.9L, Albumin 3.6, Triglycerides Level 120, Cholesterol Level 138, LDL Cholesterol Direct 71, VLDL Cholesterol 24, HDL Cholesterol 42 ECG Impression ECG Initial ECG Rhythm: Normal Sinus Initial ECG Impression: Normal A/P-Cardiology Assessment/Admission Diagnosis Chest pain Plan Acute coronary syndrome has been ruled out with serial troponins and negative EKG. Echocardiogram and pharmacological nuclear stress test this morning. Thank you for your consultation. Please call me if you have any questions. Radha Kern MD, FACP, FACC, FSCAI, FHRS, CCDS Interventional Cardiology Cardiac Electrophysiology Vascular Medicine and Endovascular Interventions Clinical Quality Measures AMI/AHF: ASA po Prior to arrival: No DVT/VTE Risk/Contraindication: Risk Factor Score Per Nursin RFS Level Per Nursing on Admit: 2=Moderate Yulissa KERN MD Jun 19, 2017 11:25
[2017-06-19 12:00] VITALS: BP 128/71
[2017-06-19] MEDS ORDERED: ACETAMINOPHEN 325 MG TABLET/CAPLET (TYLENOL) PO PRN (12:00)
--- NOTE | 2017-06-19 12:01 | Short Stay Summary-Hospitalist ---
HPI History of Present Illness: HPI/Chief Complaint CC: Chest pain HPI: This is a 42 [address] Nunez who presented with chest pain that was squeezing in nature 2 hours prior to arrival. Workup was negative in ER but since Nitroglycerine resolved pain, was admitted for cardiac risk stratification. WBC was 14.1 now 7.7, CMP normal, Troponin negative Patient Interview: Pt states she has a lingering chest pain, and pt rates her pain at a [address] Nunez as PCP. 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 Pt confirms being 8 years Pt denies having heart issues previously and denies family hx of this as well. Pt denies having lung or intestinal issues Physical exam stable. Lungs sound perfect Pt denies vomiting and otherwise feels good Pt confirms having a headache from the Lexiscan prep CXR and labs were discussed and these look good Scribed by Allie Torres under the direct supervision of Dr. Schmidt. 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) Alcohol Use: Occasionally Uses Number of Drinks Today: 0 Alcohol Beverage of Choice: Wine Recreational Drug Use: No Smoking Status: Never a Smoker 2nd Hand Smoke Exposure: No Physical Abuse Screen: No Sexual Abuse: No Recent Foreign Travel: No Contact w/other who traveled: No Recent Hopitalizations: No Recent Infectious Disease Expo: No Immunizations Up To Date Tetanus Booster (TDap): Less than 5yrs Pediatric: Yes Seasonal Allergies Seasonal Allergies: No Surgeries Yes (ORAL SURGERY, BACK SURGERY, BREAST AUGMENTATION) Hysterectomy, Orthopedic, Tubal Ligation Respiratory No Cardiovascular No Neurological No Reproductive System Hx Reproductive Disorders: Yes (OVARIAN MASS) Female 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 Genitourinary Yes Kidney Stones Gastrointestinal No Musculoskeletal No Endocrine History of Endocrine Disorders: No HEENT History of HEENT Disorders: No Cancer No Psychosocial History of Psychiatric Problem: Yes Behavioral Health Disorders: Anxiety, Depression Integumentary History of Skin or Integumenta: No Blood Transfusions History of Blood Disorders: No Adverse Reaction to a Blood Tr: No Reviewed Nursing Assessment Reviewed/Agree w Nursing PMH: Yes Review of Systems Constitutional: see HPI EENTM: no symptoms reported Respiratory: no symptoms reported Cardiovascular: chest pain Gastrointestinal: no symptoms reported Genitourinary: no symptoms reported Musculoskeletal: no symptoms reported Skin: no symptoms reported Psychiatric/Neurological: No Symptoms Reported All Other Systems Reviewed Negative Unless Noted: Yes Physical Exam Physical Exam Vital Signs Vital Sign - Last 12Hours 06/18/17 06/18/17 13:21 16:37 Temp 97.4 Pulse 86 Resp 26 B/P (MAP) 149/104 Pulse Ox 98 O2 Delivery Room Air Capillary Refill : Less Than 3 SecondsLess Than 3 Seconds General Appearance: No Apparent Distress, WD/WN, Obese Eyes: Bilateral Eye Normal Inspection, Bilateral Eye PERRL HEENT: PERRL/EOMI, Normal ENT Inspection, Pharynx Normal Neck: Full Range of Motion, Normal Inspection, Non Tender, Supple, Carotid Bruit Respiratory: Chest Non Tender, Lungs Clear, Normal Breath Sounds, No Accessory Muscle Use, No Respiratory Distress Cardiovascular: Regular Rate, Rhythm, No Edema, No Gallop, No JVD, No Murmur, Normal Peripheral Pulses Gastrointestinal: Normal Bowel Sounds, No Organomegaly, No Pulsatile Mass, Non Tender, Soft Back: Normal Inspection, No CVA Tenderness, No Vertebral Tenderness Extremity: Normal Capillary Refill, Normal Inspection, Normal Range of Motion, Non Tender, No Calf Tenderness, No Pedal Edema Neurologic/Psychiatric: Alert, Oriented x3, No Motor/Sensory Deficits, Normal Mood/Affect Skin: Normal Color, Warm/Dry Lymphatic: No Adenopathy Results Results/Procedures Lab Laboratory Tests 06/18/17 13:35 06/19/17 05:55 Short Stay Diagnosis Discharge Diagnosis-Short Stay Admission Diagnosis Chest pain of unknown source Anxiety hx Renal stones Final Discharge Diagnosis Chest pain of unknown source Anxiety hx Renal stones Conclusion Plan Plan: Follow up with Dr. Nunez as outpt to pursue other causes for CP Out-pt testing to continue by PCP Clinical Quality Measures AMI/AHF: ASA po Prior to arrival: No DVT/VTE Risk/Contraindication: Risk Factor Score Per Nursin RFS Level Per Nursing on Admit: 2=Moderate LARS SCHMIDT DO Jun 19, 2017 12:01
[2017-06-19 16:00] VITALS: BP 128/78
--- NOTE | 2017-06-19 19:43 | STRESS TEST ---
DATE OF SERVICE: 06/19/2017 PHARMACOLOGICAL NUCLEAR STRESS TEST REPORT ATTENDING PHYSICIAN: Dr. Carter Lentz. PRIMARY PHYSICIAN: Dr. Shmuel Nunez. DIAGNOSIS: Chest pain. READING PHYSICIAN: Dr. Radha Kern. INDICATION: Chest pain. PROCEDURE DETAILS: The patient was brought to the stress lab after informed consent was taken. Stress test was performed according to the Lexiscan protocol. IV Lexiscan 0.4 mg was injected intravenously. Low-grade exercise was performed. Baseline EKG showed sinus rhythm at 73 BPM. Blood pressure was 128/84 mmHg. Maximum heart rate was 127 BPM and blood pressure was 150/89 mmHg. The patient did not have any significant chest pain, ST-T wave abnormalities or arrhythmias noted. Myoview 10.14 mCi were given for rest imaging and 30.5 mCi of Myoview were given for stress imaging. TID was 1.05. Ejection fraction was 65%. There is a reversible large anterior defect. There is also a reversible apical septal defect. Normal wall motion. SSS is 4, SRS is 2, SDS is 2. IMPRESSION AND CONCLUSION: 1. Pharmacological stress test is negative for ischemia. 2. There is evidence of ischemia in the anterior and apical septal territory. Coronary angiography is recommended. Job ID: [id number] DocumentID: [id number] Dictated Date: 06/19/2017 12:05:57 Asbestos Surveyor Date: 06/19/2017 13:54:25 Dictated By: RADHA KERN MD
[2017-06-19] MEDS: IBUPROFEN 600 MG (MOTRIN) TAB PO PRN (19:51)
[2017-06-19 20:10] VITALS: BP 123/84
[2017-06-20] VITALS (11 sets, daily range): BP systolic 115–131; BP diastolic 68–80
[2017-06-20] MEDS ORDERED: NS IV 1000 ML 2,000 ML ONE (06:43)
[2017-06-20] MEDS ORDERED: HEParin 1000 UNIT/ML (10ML VIAL) FOR BOLUS ONE (06:43)
[2017-06-20] MEDS ORDERED: fentaNYL INJECTION 100 MCG/2 ML AMP ONE (10:35)
[2017-06-20] MEDS ORDERED: MIDAZOLAM 5 MG/5 ML (VERSED) VIAL ONE (10:35)
[2017-06-20] MEDS: NS IV 1000 ML 1,000 ML IV SCH ×2 (10:43)
--- NOTE | 2017-06-20 10:43 | Discharge Summary-Hospitalist ---
Diagnosis/Chief Complaint Date of Admission Jun 18, 2017 at 16:26 Date of Discharge Discharge Date: Jun 20, 2017 Discharge Time: 1700 Admission Diagnosis Chest pain of unknown source Anxiety hx Renal stones Discharge Diagnosis Chest pain with abnl EST performing cath Plan: Follow up with Dr. 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 Pt denies having any chest pain since yesterday. Physical exam stable. Lungs sound perfect. Plan: Cardiac cath Scribed by Allie Torres under the direct supervision of Dr. Rico. Discharge Summary Discharge Physical Examination Allergies: Uncoded Allergies: CHLORAPREP (Allergy, Unknown, 06/18/17) per patient Vitals & I&Os Vital Signs Date Time Temp Pulse Resp B/P (MAP) Pulse Ox O2 Delivery O2 Flow Rate FiO2 06/20/17 18:02 88 20 125/80 96 Room Air 06/20/17 16:19 98.2 Hospital Course Cardiac cath revealed no evidence of obstructive CAD to she was DC'ed for close f/u with PCP. Discharge Home Medications: Active Scripts Active Reported Acetaminophen ER (Acetaminophen) 650 Mg Tablet.er 650 Mg PO DAILY PRN TAKES ALONG WITH IBUPROFEN Ibuprofen 200 Mg Tablet 600 Mg PO DAILY PRN TAKES 3 (200 MG) TABLETS / TAKES ALONG WITH ACETAMINOPHEN Citalopram HBr (Citalopram Hydrobromide) 20 Mg Tablet 30 Mg PO DAILY TAKES 1 & 1/2 OF A (20 MG) TABLET Instructions to patient/family Please see electronic discharge instructions given to patient. Clinical Quality Measures AMI/AHF: ASA po Prior to arrival: No DVT/VTE Risk/Contraindication: Risk Factor Score Per Nursin RFS Level Per Nursing on Admit: 2=Moderate LARS RICO DO Jun 20, 2017 10:43
--- NOTE | 2017-06-20 11:51 | Cardiac Procedure Note-CS/ASA ---
Pre-Procedure Note Pre-Op Procedure Note H&P Reviewed The H&P was reviewed, patient examined and no changes noted. Date H&P Reviewed: Jun 20, 2017 Time H&P Reviewed: 11:00 Conscious Sedation Pre-Proced Time Reviewed: 11:00 ASA Class: 2 Airway Mallampati Classification: ([place] appropriate class) I. II. III, IV Lungs Heart ASA score ASA 1: a normal healthy patient ASA 2: a patient with a mild systemic disease (mid diabetes, controlled hypertension, obesity ASA 3: a patient with a severe systemic disease that limits activity (angina , COPD, prior Myocardial infarction) ASA 4: a patient with an incapacitating disease that is a constant threat to life (CHF, renal failure) ASA 5: a moribund patient not expected to survive 24 hrs. (ruptured aneurysm) ASA 6: a declared brain patient whose organs are being harvested. For emergent operations, add the letter E after the classification Grade 1 Sedation Plan: Analgesia, Amnesia, Plan communicated to team members, Discussed options with patient/fam, Discussed risks with patient/fam Note The patient is an appropriate candidate to undergo the planned procedure, sedation, and anesthesia. The patient immediately re-assessed prior to indication. Yulissa DAVILA MD Jun 20, 2017 11:51 am
[2017-06-20] MEDS ORDERED: NS IV 1000 ML 1,000 ML IV SCH (11:52)
--- NOTE | 2017-06-20 11:52 | Cardiology Post Procedure Note ---
Post-Procedure Note Physician (s)/Biometric Screener (s) Physician Yulissa DAVILA MD Pre-Procedure Diagnosis Pre-Procedure Diagnosis: chest pain, abnormal nuclear stress test Post-Procedure Note Procedure Start Date: Jun 20, 2017 Procedure Start Time: 11:00 Name of Procedure: coronary angiography, left heart catheterization Findings/Procedure Note patent epicardial coronary vessels, Normal LV function, Normal LVEDP. Anesthesia Type: Conscious Sedation Estimated blood loss (mL): 10 Contrast Amount: 54 Post-Procedure Diagnosis Post-operative diagnosis: patent epicardial coronary vessels. Yulissa DAVILA MD Jun 20, 2017 11:52 am
--- NOTE | 2017-06-20 11:54 | Cardiology Progress Note ---
Cardiology SOAP Progress Note Subjective: no further chest discomfort Objective: I&O/Vital Signs Vital Sign - Last 12Hours 06/20/17 06/20/17 06/20/17 06/20/17 00:00 01:00 04:00 07:00 Temp 96.4 96.8 Pulse 86 75 68 65 Resp 18 17 B/P (MAP) 131/72 115/68 Pulse Ox 96 97 O2 Delivery Room Air Room Air 06/20/17 08:00 Temp 97.0 Pulse 75 Resp 16 B/P (MAP) 127/74 Pulse Ox 98 O2 Delivery Room Air Weight (Pounds): 226 Weight (Ounces): 2.0 Weight (Calculated Kilograms): 102.112386 Constitutional: No appears stated age, No AAO x 3, No apparent distress, No PERRL, No well-developed, No well-nourished, No other Respiratory: No accessory muscle use, No respiratory distress, No chest tender , No chest expansion is symmetric, No chest is bilaterally symmetric, No lungs clear to percussion, No lungs clear to auscultation, No crackles, No rhonchi, No rales, No stridor, No wheezing, No pleural rub, No other Cardiovascular: No regular rate-rhythm, No irregularly irregular, No extra beats, No parasternal heave is noted, No JVD, No edema, No bradycardia, No tachycardia, No point of maximal impulse, No cardiac thrills are palpable, No S1 and S2, No gallop/S3, No gallop/S4, No diastolic murmur, No systolic murmur, No friction rub, No click, No other Gastrointestional: No tender, No soft, No round, No distended, No pulsatile mass, No organomegaly, No guarding, No rebound, No tenderness, No hernia, No mass, No audible bowel sounds, No abnormal bowel sounds, No abdominal bruits, No spleenomegaly, No other Extremities: No normal range of motion, No non-tender, No normal inspection, No pedal edema, No calf tenderness, No normal capillary refill, No pelvis stable , No calf tenderness, No inflammation, No pedal edema, No slow capillary refill , No swelling, No other, No abrasion, No clubbing, No cyanosis, No ecchymosis, No laceration, No no lower extremity edema bilateral, No significant edema, No tenderness, No wound Neurologic/Psychiatric: No linux server engineer II-XII nml as tested, No no motor/sensory deficits, No alert, No normal mood/affect, No oriented x 3, No abnormal cerebellar tests, No abnormal linux server engineer II-XII, No abnormal gait, No aphasia, No EOM palsy, No facial droop, No motor weakness, No sensory deficit, No depressed affect, No disoriented x 3, No other, No grossly intact, No power is 5/5 both on sides Skin: No normal color, No warm/dry, No cyanosis, No cool, No diaphoresis, No damp, No ecchymosis, No jaundice, No mottled, No pallor, No rash, No tattoos/ piercings, No ulcerations, No rash on exposed areas, No ulcerations on exposed areas, No other A/P: Assessment/Dx: Chest pain Plan: Acute coronary syndrome has been ruled out with serial troponins and negative EKG. echocardiogram showed normal LV and RV size and function. pharmacological nuclear stress test showed evidence of anterior ischemia. Coronary angiography showed patent epicardial coronary vessels. Okay to discharge after bedrest is over. Thank you for your consultation. Please call me if you have any questions. Radha Kern MD, FACP, FACC, FSCAI, FHRS, CCDS Interventional Cardiology Cardiac Electrophysiology Vascular Medicine and Endovascular Interventions Clinical Quality Measures AMI/AHF: ASA po Prior to arrival: Yulissa Miller MD Jun 20, 2017 11:54 am
[2017-06-20] MEDS ORDERED: PATIENT MAY USE OWN MEDS, ALL PO SCH (12:00)
--- NOTE | 2017-06-20 13:11 | CARDIAC CATHETERIZATION ---
DATE OF SERVICE: 06/20/2017 CORONARY ANGIOGRAPHY INDICATION: Recurrent chest pain, abnormal nuclear stress test. PREOPERATIVE DIAGNOSIS: Recurrent chest pain, abnormal nuclear stress test. POSTOPERATIVE DIAGNOSIS: Patent epicardial coronary vessels. HISTORY OF PRESENT ILLNESS: The patient is a 42-year-old lady who has risk factors for CAD. She presents with recurrent chest pain episodes. Acute coronary syndrome was ruled out with negative EKG and serial troponin. A nuclear stress test was performed, which showed evidence of anterior ischemia. Coronary angiography was recommended. PROCEDURES PERFORMED: 1. Coronary angiography. 2. Left heart catheterization. 3. Mynx closure of the right femoral artery. COMPLICATIONS: None. SPECIMENS: None. ESTIMATED BLOOD LOSS: 20 mL. ANTICOAGULATION: IV heparin. ANESTHESIA: Conscious sedation. CONTRAST DOSE: 54 mL of Omnipaque. FLUOROSCOPY TIME: 2.4 minutes. FLUOROSCOPY DOSE: 305 mGy. PROCEDURE DETAILS: The patient was brought to the cardiac catheterization technician after informed consent was taken. All the risks and complication were explained in detail. Right radial access could not be done due to a poor Aidan's test. Therefore, access was gained in the right femoral artery with a 6-Romanian sheath. Coronary angiography, left heart catheterization was performed with the JR4 catheter and JL4 catheter. FINDINGS: 1. Left main: Patent. 2. LAD: Patent, transapical vessel. 3. Left circumflex artery: Patent. RCA: Patent. Left heart catheterization, aortic pressure 137/79 mmHg. LV pressure 113/6 mmHg. LVEDP 12 mmHg. Normal LV function with no wall motion abnormalities. No gradient across the aortic valve. IMPRESSION AND CONCLUSION: 1. Patent epicardial coronary vessel. 2. Continue primary prevention measures. Job ID: [id number] DocumentID: [id number] Dictated Date: 06/20/2017 11:50:04 Dispute Coordinator Date: 06/20/2017 13:10:41 Dictated By: RADHA DAVILA MD
[2017-06-20] MEDS: ASPIRIN E.C. 325 MG (ECOTRIN) TABLET PO SCH (13:15)
[2017-06-20] MEDS: IBUPROFEN 600 MG (MOTRIN) TAB PO PRN (14:23)
--- OUTSIDE RECORDS SUMMARY | 2017-06-21 16:22 | XMS REPORT | Clinical Summary ---
Author Author [facility] Organization [facility] Address Unknown Phone Unavailable Care Team Providers Care Field Artillery Basic Name Role Phone PCP Unavailable Source Comments Some departments are not documenting in the electronic medical record. If you do not see the information that you expected, contact Release of Information in the Health Information Management department at [phone] for further assistance in locating additional records.[facility] Allergies No Known Allergies Current Medications Prescription [...]
== END 2017-06-20 17:00 | disposition home or self-care (01) ==
LOC: EDUNIT# 13:21 → ER 13:22 → 4TH 15:33 → UNDOADMOB 15:33 → 4TH 16:26 → UNDOADMOB 16:26 → CATH 16:26 → UNDODISOB 06-20 17:00
PROVIDERS: ATTEND Internal Medicine
DX: R07.89 Other chest pain (principal); F41.9 Anxiety disorder, unspecified; Z87.442 Personal history of urinary calculi
CPT/HCPCS: 36415; 71010; 78452; 80053; 80061; 82550; 83735; 83874; 84484; 85007; 85025; 85027; 85379; 85610; 85730; 93005; 93017; 93041; 93306; 93458; G0378

== ENCOUNTER 2018-08-11 23:03 | Emergency (ER) | payer BC, OTHER ==
[~2018-08-11] VITALS: Ht 170.2 cm; Wt 99.3 kg
[~2018-08-11 23:03] MED LIST changes: +ACET-2422 PO; -CITA20TA7 PO; +CITA20TA9 PO; +HYDR-4226 PO; -HYDR-757 PO; +IBUP-2055 PO
[2018-08-11] MEDS ORDERED: ASPIRIN 81 MG CHEW (CHILDREN'S ASA) PO ONE (23:15)
[2018-08-11] MEDS ORDERED: NITROGLYCERIN 0.4 MG SL TABS BTL 25'S SL PRN (23:15)
[2018-08-11 23:22] LABS: BASOPHILS # (AUTO) 0.1 10^3/uL (0.0-0.1); BASOPHILS % (AUTO) 1 % (0-10); EOSINOPHILS # (AUTO) 0.4 10^3/uL (0.0-0.3); EOSINOPHILS % (AUTO) 3 % (0-10); HEMATOCRIT 40 % (35-52); HEMOGLOBIN 12.8 G/DL (11.5-16.0); LYMPHOCYTES # (AUTO) 3.6 X 10^3 (1.0-4.0); LYMPHOCYTES % (AUTO) 33 % (12-44); MEAN CORPUSCULAR HEMOGLOBIN 28 PG (25-34); MEAN CORPUSCULAR HGB CONC 32 G/DL (32-36); MEAN CORPUSCULAR VOLUME 86 FL (80-99); MONOCYTES # (AUTO) 0.8 X 10^3 (0.0-1.0); MONOCYTES % (AUTO) 7 % (0-12); NEUTROPHILS # (AUTO) 6.2 X 10^3 (1.8-7.8); NEUTROPHILS % (AUTO) 56 % (42-75); PLATELET COUNT 488 10^3/uL (130-400); RED BLOOD COUNT 4.62 10^6/uL (4.35-5.85); RED CELL DISTRIBUTION WIDTH 15.3 % (10.0-14.5)
[2018-08-11 23:33] LABS: PROTHROMBIN TIME PATIENT 13.1 SEC (12.2-14.7)
[2018-08-11 23:43] LABS: ALANINE AMINOTRANSFERASE 17 U/L (0-55); ALBUMIN 4.5 GM/DL (3.2-4.5); ALKALINE PHOSPHATASE 84 U/L (40-136); AMYLASE 70 U/L (25-125); BILIRUBIN,TOTAL 0.2 MG/DL (0.1-1.0); BUN/CREATININE RATIO 19; CALCIUM 9.2 MG/DL (8.5-10.1); CARBON DIOXIDE 24 MMOL/L (21-32); CHLORIDE 108 MMOL/L (98-107); CREATINE KINASE 60 U/L (29-168); CREATININE SERUM 0.86 MG/DL (0.60-1.30); GFR ESTIMATED > 60; GLUCOSE 105 MG/DL (70-105); LIPASE 16 U/L (8-78); MAGNESIUM 2.5 MG/DL (1.8-2.4); POTASSIUM 3.7 MMOL/L (3.6-5.0); SODIUM 142 MMOL/L (135-145); TOTAL PROTEIN 7.1 GM/DL (6.4-8.2)
[2018-08-11 23:50] LABS: CREATINE KINASE MB 0.9 NG/ML (<6.6); MYOGLOBIN SERUM 24.8 NG/ML (10.0-92.0)
[2018-08-12] MEDS ORDERED: NS 100 ML (IVPB) BAG IV ONE (01:15)
[2018-08-12] MEDS ORDERED: RECEIVED CONTRAST (Hold Metformin) IV SCH (01:15)
[2018-08-12] MEDS ORDERED: IOHEXOL 350 MG/ML 150 ML (OMNIPAQUE 350) VIAL IV ONE (01:15)
[2018-08-12] MEDS ORDERED: KETOROLAC 30 MG/ML VIAL IVP ONE (01:30)
--- NOTE | 2018-08-12 01:33 | ED Chest Pain ---
General Chief Complaint: Chest Pain Stated Complaint: CP Nursing Triage Note: PT AMB TO ROOM #5 W/O DIFFICULTY. A&OX4. C/O RT SIDE CHEST PAIN THAT RADIATES THROUGH TO RT BACK. PT REPORTS PAIN BEGAN YESTERDAY AFTERNOON AND HAS BEEN INTERMITTENT SINCE, LASTING APPROX 10-15Q. PT REPORTS SHE FEELS LH AND FLUSHED WHEN CHEST PAIN APPROACHES. NO SWELLING NOTED TO UPPER OR LOWER BILAT EXTREMITIES. DENIES RECENT ILLNESS. PT DENIES CURRENT CHEST PAIN. Nursing Sepsis Screen: No Definite Risk Allergies and Home Medications Allergies Uncoded Allergies: CHLORAPREP (Allergy, Unknown, 06/18/17) per patient Home Medications Acetaminophen 650 Mg Tablet.er, 650 MG PO DAILY PRN for HEADACHE, (Reported) TAKES ALONG WITH IBUPROFEN Citalopram Hydrobromide 20 Mg Tablet, 30 MG PO DAILY, (Reported) TAKES 1 & 1/2 OF A (20 MG) TABLET Ibuprofen 200 Mg Tablet, 600 MG PO DAILY PRN for HEADACHE, (Reported) TAKES 3 (200 MG) TABLETS / TAKES ALONG WITH ACETAMINOPHEN Past Asztcvm-Fqzwdq-Ffhyxr Hx Patient Social History Alcohol Use: Rarely Uses Number of Drinks Today: HH Alcohol Beverage of Choice: Wine Recreational Drug Use: No Smoking Status: Never a Smoker 2nd Hand Smoke Exposure: No Recent Foreign Travel: No Contact w/Someone Who Travel: No Recent Infectious Disease Expo: No Recent Hopitalizations: No Physical Abuse: No Sexual Abuse: No Immunizations Up To Date Tetanus Booster (TDap): Less than 5yrs PED Vaccines UTD: Yes Seasonal Allergies Seasonal Allergies: No Past Medical History Surgeries: Yes (ORAL SURGERY, BACK SURGERY, BREAST AUGMENTATION) Hysterectomy, Orthopedic, Tubal Ligation Respiratory: No Cardiac: No Neurological: No Reproductive Disorders: Yes (OVARIAN MASS) Female 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 2.0oz. 99.655233xn; 35.2 BMI Method:Stated Progress/Results/Core Measures Results/Orders Lab Results Laboratory Tests Test 08/11/18 23:15 Range/Units White Blood Count 11.0 4.3-11.0 10^3/uL Red Blood Count 4.62 4.35-5.85 10^6/uL Hemoglobin 12.8 11.5-16.0 G/DL Hematocrit 40 35-52 % Mean Corpuscular Volume 86 80-99 FL Mean Corpuscular Hemoglobin 28 25-34 PG Mean Corpuscular Hemoglobin Concent 32 32-36 G/DL Red Cell Distribution Width 15.3 H 10.0-14.5 % Platelet Count 488 H 130-400 10^3/uL Mean Platelet Volume 9.0 7.4-10.4 FL Neutrophils (%) (Auto) 56 42-75 % Lymphocytes (%) (Auto) 33 12-44 % Monocytes (%) (Auto) 7 0-12 % Eosinophils (%) (Auto) 3 0-10 % Basophils (%) (Auto) 1 0-10 % Neutrophils # (Auto) 6.2 1.8-7.8 X 10^3 Lymphocytes # (Auto) 3.6 1.0-4.0 X 10^3 Monocytes # (Auto) 0.8 0.0-1.0 X 10^3 Eosinophils # (Auto) 0.4 H 0.0-0.3 10^3/uL Basophils # (Auto) 0.1 0.0-0.1 10^3/uL Prothrombin Time 13.1 12.2-14.7 SEC INR Comment 1.0 0.8-1.4 Activated Partial Thromboplast Time 27 24-35 SEC Sodium Level 142 135-145 MMOL/L Potassium Level 3.7 3.6-5.0 MMOL/L Chloride Level 108 H 98-107 MMOL/L Carbon Dioxide Level 24 21-32 MMOL/L Anion Gap 10 5-14 MMOL/L Blood Urea Nitrogen 16 7-18 MG/DL Creatinine 0.86 0.60-1.30 MG/DL Estimat Glomerular Filtration Rate > 60 BUN/Creatinine Ratio 19 Glucose Level 105 70-105 MG/DL Calcium Level 9.2 8.5-10.1 MG/DL Corrected Calcium 8.8 8.5-10.1 MG/DL Magnesium Level 2.5 H 1.8-2.4 MG/DL Total Bilirubin 0.2 0.1-1.0 MG/DL Aspartate Amino Transf (AST/SGOT) 15 5-34 U/L Alanine Aminotransferase (ALT/SGPT) 17 0-55 U/L Alkaline Phosphatase 84 40-136 U/L Total Creatine Kinase 60 29-168 U/L Creatine Kinase MB 0.9 <6.6 NG/ML Myoglobin 24.8 10.0-92.0 NG/ML Troponin I < 0.028 <0.028 NG/ML B-Type Natriuretic Peptide < 10.0 <100.0 PG/ML Total Protein 7.1 6.4-8.2 GM/DL Albumin 4.5 3.2-4.5 GM/DL Amylase Level 70 25-125 U/L Lipase 16 8-78 U/L My Orders Orders - LINDSEY HOLDER DO Cbc With Automated Diff (08/11/18 23:11) Magnesium (08/11/18 23:11) Chest 1 View, Ap/Pa Only (08/11/18 23:11) Ekg Tracing (08/11/18 23:11) Cardiac Profile 1 (08/11/18 23:11) Comprehensive Metabolic Panel (08/11/18 23:11) Myoglobin Serum (08/11/18 23:11) Protime With Inr (08/11/18 23:11) Partial Thromboplastin Time (08/11/18 23:11) O2 (08/11/18 23:11) Monitor-Rhythm Ecg Trace Only (08/11/18 23:11) Lipid Panel (08/12/18 06:00) Aspirin Chewable Tablet (Baby Aspirin Ch (08/11/18 23:15) Nitroglycerin 0.4 Mg Btl 25's (Nitrostat (08/11/18 23:15) Saline Lock/Iv-Start (08/11/18 23:11) Creatine Kinase (08/11/18 23:11) Creatine Kinase Mb (08/11/18 23:11) Lipase (08/11/18 23:11) Amylase (08/11/18 23:11) BNP (08/11/18 23:11) Ct Angio Chest W (08/12/18 00:11) Iohexol Injection (Omnipaque 350 Mg/Ml 1 (08/12/18 01:15) Contrast Received (Contrast Received) (08/12/18 01:15) Ns (Ivpb) (Sodium Chloride 0.9% Ivpb Bag (08/12/18 01:15) Ketorolac Injection (Toradol Injection) (08/12/18 01:30) Medications Given in ED Current Medications Medications Dose Ordered Sig/Cherry Route Start Time Stop Time Status Last Admin Dose Admin Aspirin 324 mg ONCE ONCE PO 08/11/18 23:15 08/11/18 23:16 DC 08/11/18 23:19 324 MG Iohexol 150 ml ONCE ONCE IV 08/12/18 01:15 08/12/18 01:16 DC 08/12/18 01:07 125 ML Ketorolac Tromethamine 30 mg ONCE ONCE IVP 08/12/18 01:30 08/12/18 01:31 DC 08/12/18 01:28 30 MG Sodium Chloride 100 ml ONCE ONCE IV 08/12/18 01:15 08/12/18 01:16 DC 08/12/18 01:07 80 ML Vital Signs/I&O 08/11/18 08/11/18 23:09 23:09 Temp 97.6 Pulse 78 Resp 18 B/P (MAP) 117/91 (100) Pulse Ox 99 O2 Delivery Room Air Room Air Blood Pressure Mean: 100 Departure Impression Primary Impression: Chest pain Disposition: HOME, SELF-CARE Condition: Stable Departure-Patient Inst. Referrals: CEZAR RUSSO DO (PCP/Family) Primary Care Physician Patient Instructions: Chest Pain That Is Not Caused by the Heart (DC), Chest Pain (DC), Heart Healthy Diet Add. Discharge Instructions: TYLENOL AND MOTRIN NEEDED FOR PAIN TAKE YOUR REGULAR MEDICATIONS PRESCRIBED FOLLOW UP WITH YOUR DR THIS WEEK FOR FURTHER CARE RETURN TO ER IF SYMPTOMS WORSEN All discharge instructions reviewed with patient and/or family. Voiced understanding. LINDSEY HOLDER DO Aug 12, 2018 01:33
[2018-08-12 01:40] VITALS: BP 136/77
--- NOTE | 2018-08-12 06:49 | Diagnostic Imaging Report ---
INDICATION: Chest pain COMPARISON: 06/18/2017 FINDINGS: Frontal view of the chest demonstrate clear lungs bilaterally. The heart size is normal. There is no pneumothorax. Osseous structures are normal. IMPRESSION: No acute findings. Normal chest. Dictated by: Dictated on workstation # [id number]
--- NOTE | 2018-08-12 07:54 | Diagnostic Imaging Report ---
PROCEDURE: CT angiography of the chest with contrast. TECHNIQUE: Multiple contiguous axial images were obtained through the chest after uneventful bolus administration of intravenous contrast. 2D reconstructed CTA MIP acquisitions were also performed. INDICATION: Shortness of breath, chest pain, pulmonary embolism. COMPARISON: None. FINDINGS: The heart, pulmonary arteries and aorta are normal. There is no pericardial or pleural effusion. No pulmonary emboli are seen. The lungs are clear throughout. There is no nodule, mass, infiltrate or effusion. No pneumothorax. Visualized upper abdominal solid organs are intact. Osseous structures are age-appropriate. IMPRESSION: Negative CT angio chest. Agree with preliminary report. Dictated by: Dictated on workstation # [id number]
== END 2018-08-12 01:40 | disposition home or self-care (01) ==
LOC: EDUNIT# 23:03 → ER 23:05
DX: R07.9 Chest pain, unspecified (principal); F41.9 Anxiety disorder, unspecified; F32.9 Major depressive disorder, single episode, unspecified; Z88.8 Allergy status to other drugs, medicaments and biological substances; Z98.890 Other specified postprocedural states; Z90.710 Acquired absence of both cervix and uterus; Z98.51 Tubal ligation status; Z87.448 Personal history of other diseases of urinary system; Z87.442 Personal history of urinary calculi
CPT/HCPCS: 36415; 71045; 71275; 80053; 82150; 82550; 82553; 83690; 83735; 83874; 83880; 84484; 85025; 85610; 85730; 93005; 93041; 96374

== ENCOUNTER → 2019-04-01 | Outpatient (CLI) | payer BC ==
--- NOTE | 2019-04-03 07:49 | Diagnostic Imaging Report ---
Digital mammogram. Bilateral screening with 3-D tomosynthesis and CAD. This study was compared to the prior exams of05/09/2016, 01/20/2015 and 05/19/2012. At this time there are no current complaints. There are bilateral breast implants in place. The implants appear similar to the prior exam. There is no sign of extracapsular rupture of either implant. The fibroglandular tissue overlying the implants is heterogeneously dense. This does limit the sensitivity of this exam. When compared to the previous study, there does not appear to have been any significant change. There is no primary or secondary sign of malignancy noted. Impression: 1. There is no evidence of malignancy. 2. The breast implants appear stable. 3. The patient should have her annual bilateral screening mammogram on schedule in March of 2020. ACR BI-RADS Category 1: Negative. Result letter will be mailed to the patient. Note: At least 10% of breast cancer is not imaged by mammography. Dictated by: Dictated on workstation # [id number]
== END ==
LOC: RAD 14:36
PROVIDERS: ATTEND Obstetrics & Gynecology
DX: Z12.31 Encounter for screening mammogram for malignant neoplasm of breast (principal)
CPT/HCPCS: 77067

== ENCOUNTER → 2020-01-04 | Outpatient (CLI) | payer BC ==
[~2020-01-04] MED LIST changes: -IBUP-2055 PO; +IBUP-2473 PO
== END ==
LOC: LABNPT 09:25
PROVIDERS: ATTEND Emergency Medicine
DX: Z11.59 Encounter for screening for other viral diseases (principal); G56.02 Carpal tunnel syndrome, left upper limb
CPT/HCPCS: 87635

== ENCOUNTER → 2021-03-30 | Outpatient (CLI) | payer BC ==
[~2021-03-30] MED LIST changes: -SULF1TAB35 PO; +SULF1TAB38 PO
--- NOTE | 2021-03-30 12:21 | Diagnostic Imaging Report ---
Indication: Routine screening. Comparison is made with prior mammogram from 04/01/2019 and 05/09/2016. 2-D and 3-D bilateral screening mammography was performed with CAD. Bilateral breast implants are noted. There appears to be findings of implant rupture on the left. Right implant is stable. Both breasts are heterogeneously dense, limiting the sensitivity of mammography. No mass is identified. No malignant-appearing microcalcifications are seen. IMPRESSION: BI-RADS Category 2 No mammographic features suspicious for malignancy are identified. Left breast implant rupture. ACR BI-RADS Category 2: Benign findings. Result letter will be mailed to the patient. Note: At least 10% of breast cancer is not imaged by mammography. Dictated by: Dictated on workstation # [id number]
== END ==
LOC: RAD 11:00
PROVIDERS: ATTEND Obstetrics & Gynecology
DX: Z12.31 Encounter for screening mammogram for malignant neoplasm of breast (principal)
CPT/HCPCS: 77063; 77067

== ENCOUNTER 2021-12-06 05:39 | Outpatient (CLI) | payer OTHER ==
[~2021-12-06] VITALS: Ht 170.2 cm; Wt 76.4 kg
[2021-12-06] MEDS ORDERED: MULT-974 PO (09:21)
[2021-12-07] MEDS ORDERED: HYDR-3817 PO (11:40)
== END 2021-12-06 09:48 | disposition home or self-care (01) ==
LOC: PREOP 05:39
PROVIDERS: ATTEND Surgery
DX: Z01.818 Encounter for other preprocedural examination (principal)

== ENCOUNTER 2021-12-07 10:52 | Day surgery (SDC) | payer BC, OTHER ==
[~2021-12-07] VITALS: Ht 170.2 cm; Wt 76.4 kg
[2021-12-07] VITALS (11 sets, daily range): BP systolic 115–135; BP diastolic 69–81
[~2021-12-07 10:52] MED LIST changes: +MULT-974 PO
[2021-12-07] MEDS ORDERED: ceFAZolin 2 GM IV Premixed 50 ML IV ONE (11:15)
[2021-12-07] MEDS: LACTATED RINGERS 1,000 ML IV PRN ×2 (11:25→13:27)
--- NOTE | 2021-12-07 11:38 | Progress Note-Pre Operative ---
Pre-Operative Progress Note H&P Reviewed The H&P was reviewed, patient examined and no changes noted. Date Seen by Provider: December 07, 2021 Time Seen by Provider: 11:00 Date H&P Reviewed: December 07, 2021 Time H&P Reviewed: 11:00 Pre-Operative Diagnosis: chronic calculous cholecystitis BETHEL DIAS MD December 07, 2021 11:38
[2021-12-07] MEDS ORDERED: HYDR-3817 PO (11:40)
--- NOTE | 2021-12-07 11:41 | Discharge Inst-Surgical ---
D/C Lap Instructions-LARISSA New, Converted, or Re-Newed RX: RX on Chart Follow Up Appt in 2 weeks Activity as tolerated No driving for 24 hours No driving while on pain medications Incentive Spirometry use every 2 hours while awake Regular Diet Symptoms to Report: Fever over 101 degree F, Nausea/Vomiting Infection Signs and Symptoms to report: Increased redness, Foul odor of wound, Increased drainage Bathing instructions: May shower Operative Area Clean/Dry; Keep incision clean/dry If any problems/questions: Contact your physician or go to Emergency Room BETHEL DIAS MD December 07, 2021 11:41
[2021-12-07] MEDS ORDERED: ACETAMINOPHEN 325 MG TABLET PO PRN (11:45)
[2021-12-07] MEDS ORDERED: oxyCODONE/APAP 5/325MG (PERCOCET 5) TABLET PO PRN (11:45)
[2021-12-07] MEDS ORDERED: morphine INJ 10 MG/ML 1ML (SYR OR VIAL) IVP PRN ×2 (11:45)
[2021-12-07] MEDS ORDERED: ONDANSETRON 4 MG/2 ML (SDV) Z0FRAN IVP PRN ×2 (11:45→14:00)
[2021-12-07] MEDS ORDERED: proPOfol 200 MG/20 ML (DIPRIVAN) VIAL IV ONE (11:53)
[2021-12-07] MEDS ORDERED: MIDAZOLAM 2 MG/2 ML (VERSED) VIAL ONE (11:53)
[2021-12-07] MEDS ORDERED: fentaNYL INJ 100 MCG/2 ML AMP ONE (11:53)
[2021-12-07] MEDS ORDERED: LIDOCAINE/EPI 2% 1:100,00 (XYLOCAINE) 20 ML VIAL ONE (11:53)
[2021-12-07] MEDS ORDERED: LIDOCAINE PF 2% 5 ML (XYLOCAINE) VIAL ONE (11:53)
[2021-12-07] MEDS ORDERED: ONDANSETRON 4 MG/2 ML (SDV) Z0FRAN ONE (11:53)
[2021-12-07] MEDS ORDERED: SEVOFLURANE (ULTANE) 15 ML INHAL SOLN ONE ×2 (11:53→13:35)
[2021-12-07] MEDS ORDERED: NEOSTIGMINE 3 MG/3 ML VIAL ONE (13:33)
[2021-12-07] MEDS ORDERED: GLYCOPYRROLATE 0.2 MG/ML (ROBINUL) 2 ML VIAL ONE (13:33)
[2021-12-07] MEDS ORDERED: ROCURONIUM 50 MG/5 ML (ZEMURON) VIAL IV ONE (13:35)
[2021-12-07] MEDS ORDERED: morphine INJ 10 MG/ML 1ML (SYR OR VIAL) ONE (13:38)
--- NOTE | 2021-12-07 13:45 | Progress Note-Post Operative ---
Post-Operative Progess Note Surgeon (s)/Carton Packaging Machine Operator (s) Surgeon BETHEL DIAS MD Carton Packaging Machine Operator: cal sam ASSOCIATE PROJECT MANAGER Pre-Operative Diagnosis chronic calculous cholecystitis Post-Operative Diagnosis same Procedure & Operative Findings Date of Procedure 12/07/21 Procedure Performed/Findings laparocopic cholecystectomy Anesthesia Type get Estimated Blood Loss Estimated blood loss (mL): minimal Specimens/Packing Specimens Removed gallbladder BETHEL DIAS MD December 07, 2021 13:45
--- NOTE | 2021-12-07 13:53 | Anesthesia-General Post-Op ---
General Patient Condition Mental Status/LOC: Same as Preop Cardiovascular: Satisfactory Nausea/Vomiting: Absent Respiratory: Satisfactory Pain: Controlled Complications: Absent Post Op Complications Complications None Follow Up Care/Instructions Patient Instructions None needed. Anesthesia/Patient Condition Patient Condition Patient is doing well, no complaints, stable vital signs, no apparent adverse anesthesia problems. No complications reported per nursing. ZOYA HOLLY CRNA December 07, 2021 13:53
[2021-12-07] MEDS ORDERED: morphine INJ 10 MG/ML 1ML (SYR OR VIAL) IVP ONE (14:00)
[2021-12-07] MEDS ORDERED: MEPERIDINE (DEMEROL) INJ 50 MG/ML IVP ONE (14:00)
[2021-12-07] MEDS ORDERED: fentaNYL INJ 100 MCG/2 ML AMP IVP ONE (14:00)
[2021-12-07] MEDS ORDERED: oxyCODONE/APAP 5/325MG (PERCOCET 5) TABLET ONE (14:50)
--- NOTE | 2021-12-07 16:27 | OPERATIVE REPORT ---
DATE OF SERVICE: 12/07/2021 ATTENDING PRIMARY CARE PHYSICIAN: Shmuel Nunez DO PREOPERATIVE DIAGNOSIS: Symptomatic chronic calculous cholecystitis. POSTOPERATIVE DIAGNOSIS: Symptomatic chronic calculous cholecystitis. PROCEDURE: Laparoscopic cholecystectomy. SURGEON: Bethel Dias MD ANESTHESIA: General endotracheal. ESTIMATED BLOOD LOSS: Minimal. FINDINGS: Multiple small gallstones. DISPOSITION: The patient tolerated the procedure well. INDICATIONS: The patient is a 46-year-old female who states that she has developed significant pain in the right upper abdominal quadrant with radiation towards the back with associated nausea and vomiting approximately 2 to 3 weeks ago. She had reported that she had some other milder symptoms in the past and did undergo a gallbladder workup around 2014, which was negative. This time around her symptoms were much more severe and she did undergo an ultrasound and was found to have gallstones. DESCRIPTION OF PROCEDURE: The patient was brought to the operating room, laid supine on the table. After adequate IV pain and sedative medications and general endotracheal intubation, the abdomen was prepped and draped in standard surgical fashion. A 0.5% Marcaine with epinephrine was then used to anesthetize overlying skin of left upper abdominal quadrant and transverse skin incision made using 15 blade. An 0 silk suture was applied to the medial aspect of the incision for retraction and a Veress needle inserted with a low opening pressure of 0 mmHg and the abdomen was then insufflated to 15 mmHg pressure. The Veress needle removed and a 5 mm XL trocar placed followed by a 5 mm 45-degree angle laparoscope visualizing the peritoneal cavity. A 4-quadrant abdominal exploration was performed. There was a distended gallbladder, no gallbladder wall thickening. The liver grossly looked normal. Under direct visualization, we then proceed to place a supraumbilical 10 mm port after the skin and peritoneal lining were anesthetized using 0.5% Marcaine with epinephrine and a transverse skin incision made using a 15 blade. In a similar manner, a right upper abdominal quadrant 5 mm port was placed. The fundus of the gallbladder was then retracted anteriorly and superiorly. The hepatoduodenal ligament was then dissected with blunt dissection as well as electrocautery on hook instrument as well as a [place] dissector. The entire critical view of safety was identified including going into the gallbladder as well as the cystic plate behind the proximal gallbladder. A timeout was then taken and the cystic duct and artery were then clipped proximally, distally and cut with EndoShears. The gallbladder was dissected off the liver bed using cautery on hook instrument with visualization of good hemostasis as well as no leaking ducts of Luschka. The gallbladder was removed through the 10 mm port site using an EndoCatch bag. The 10 mm port site fascia and peritoneum were then closed under direct visualization using a Florian-Justyn device and 0 Vicryl suture. The abdomen was desufflated and remaining ports removed. All skin incisions were closed using 4-0 Monocryl running subcuticular sutures. Wounds were then cleaned and covered with Dermabond. The patient tolerated the procedure well. We will start IV normal pain medication as well as a clear liquid diet. Once she is tolerating clears, has good pain control with oral pain medications, ambulating well, we will discharge her home where she will be instructed to do no heavy lifting or exertion for the next two weeks. Job ID: [id number] DocumentID: [id number] Dictated Date: 12/07/2021 13:53:32 Flower Grower Date: 12/07/2021 16:26:39 Dictated By: BETHEL DIAS MD
== END 2021-12-07 16:00 | disposition home or self-care (01) ==
LOC: SDC 10:52
PROVIDERS: ATTEND Surgery
DX: K80.10 Calculus of gallbladder with chronic cholecystitis without obstruction (principal)
CPT/HCPCS: 87081

== ENCOUNTER → 2022-08-22 | Outpatient (CLI) | payer OTHER ==
[~2022-08-22] MED LIST changes: +HYDR-3817 PO
--- NOTE | 2022-08-22 09:43 | Diagnostic Imaging Report ---
PROCEDURE: MR imaging cervical spine without contrast. TECHNIQUE: Multiplanar, multisequence MR imaging of the cervical spine was performed without contrast. INDICATION: Neck pain with numbness in arms and hands. COMPARISON: None FINDINGS: There is reversal of the cervical lordosis centered at C4-C5. No significant spondylolisthesis is seen. Vertebral body heights are preserved and no acute fracture is seen. There is bone marrow edema and surrounding soft tissue edema and fluid about the right C3-C4 facet. The cervical cord demonstrates no focal lesions. Surrounding soft tissues demonstrate no acute abnormality. C2-C3: No disc bulge. No spinal canal or foraminal stenosis. C3-C4: Posterior disc osteophyte complex. No spinal canal stenosis. Minimal right foraminal narrowing. No left foraminal stenosis. C4-C5: Mild posterior disc osteophyte complex. No spinal canal or foraminal stenosis. C5-C6: Posterior disc osteophyte complex, with left paracentral disc extrusion. This causes moderate to severe left spinal canal stenosis, with flattening of the left anterior cord but no cord signal changes are seen at this time. There is moderate left foraminal stenosis and no right foraminal stenosis. C6-C7: Uncovertebral arthropathy with minimal disc bulge. No spinal canal or foraminal stenosis. C7-T1: No spinal canal or foraminal stenosis. There are small subcentimeter foraminal perineural cysts at C7-T1 bilaterally and at T1-2 on the left. IMPRESSION: 1. Degenerative changes in the cervical spine, most pronounced at C5-C6 causing moderate to severe left spinal canal stenosis and moderate left foraminal stenosis. No cord signal changes are seen. 2. Active facet arthropathy at C3-C4 on the right. Dictated by: Dictated on workstation # [id number]
== END ==
LOC: RAD 08:14
PROVIDERS: ATTEND Family Medicine
DX: M47.812 Spondylosis without myelopathy or radiculopathy, cervical region (principal); M48.02 Spinal stenosis, cervical region; R20.2 Paresthesia of skin
CPT/HCPCS: 72141

== ENCOUNTER → 2022-10-05 | Outpatient (CLI) | payer OTHER ==
--- NOTE | 2022-10-05 17:01 | Diagnostic Imaging Report ---
Indication: Neck pain with arm paresthesias Cervical spine AP lateral views of the cervical spine with lateral flexion and extension views are obtained There is straightening of the lordotic curvature of the cervical spine. Alignment is normal. There is slight disc space narrowing at C5-C6. There are some degenerative changes of the uncovertebral joints at C2-C3, C3-C4 C4-C5. There is no displacement seen during flexion or extension positions. IMPRESSION: Degenerative changes of the uncovertebral joints in the upper cervical spine and of the C5-C6 intervertebral disc. No acute abnormality seen. Dictated by: Dictated on workstation # [id number]
== END ==
LOC: RAD 13:34
PROVIDERS: ATTEND Neurological Surgery
DX: M47.812 Spondylosis without myelopathy or radiculopathy, cervical region (principal); M50.322 Other cervical disc degeneration at C5-C6 level
CPT/HCPCS: 72050

== ENCOUNTER → 2022-11-22 | Outpatient (CLI) | payer OTHER ==
--- NOTE | 2022-11-22 17:16 | Diagnostic Imaging Report ---
INDICATION: Post cervical spine fusion follow-up. Neck pain. COMPARISON: 10/05/2022. FINDINGS: When compared to the prior examination the patient has undergone an anterior cervical discectomy and fusion of C5-C6. Hardware positioning is appropriate. There is no osteolysis around the components or evidence of a screw fracture. Interbody graft positioning appears appropriate with worship of disc space height at that level and reduction in the prior retrolisthesis. Vertebral body heights are maintained. There is no abnormal prevertebral soft tissue thickening evident. IMPRESSION: 1. Expected postoperative appearance of an ACDF of C5-C6. No hardware complication is evident. There is no abnormal prevertebral soft tissue thickening. Dictated by: Dictated on workstation # [id number]
== END ==
LOC: RAD 11:47
PROVIDERS: ATTEND Physician Assistant
DX: Z98.1 Arthrodesis status (principal)
CPT/HCPCS: 72040

== ENCOUNTER → 2023-01-18 | Outpatient (CLI) | payer OTHER ==
--- NOTE | 2023-01-18 14:41 | Diagnostic Imaging Report ---
INDICATION: Neck pain. EXAMINATION: Cervical spine. FINDINGS: AP and lateral views of the cervical spine show postoperative changes from anterior cervical discectomy and fusion at C5-C6. The hardware appears secured. The alignment is normal. There is slight disc space narrowing at C4-C5. IMPRESSION: Postoperative changes from interbody fusion of C5-C6 with mild degenerative changes noted at C4-C5. Dictated by: Dictated on workstation # [id number]
== END ==
LOC: RAD 12:36
PROVIDERS: ATTEND Neurological Surgery
DX: Z48.89 Encounter for other specified surgical aftercare (principal); M47.812 Spondylosis without myelopathy or radiculopathy, cervical region; Z98.890 Other specified postprocedural states
CPT/HCPCS: 72040

== ENCOUNTER → 2023-04-22 | Outpatient (CLI) | payer OTHER ==
--- NOTE | 2023-04-22 12:38 | Diagnostic Imaging Report ---
INDICATION: Neck pain. Previous fusion. COMPARISON: 01/18/2023 FINDINGS: Frontal and lateral radiograph views of the cervical spine were obtained. Flexion and extension views were also provided in the lateral projection. Patient is status post previous anterior fusion at C5-C6. [place] screws appear well-seated. Anterior fusion plate appears appropriately positioned as well. Intervertebral disc spacers also present and appears appropriately. No unexpected radiopaque foreign bodies are seen. There is no significant anterolisthesis or retrolisthesis. There is no evidence of jumped facets. Flexion and extension views show no abnormal translation. Vertebral body heights are preserved. There is no acute fracture. Surrounding soft tissue structures are unremarkable. IMPRESSION: 1. Expected postoperative changes of previous anterior fusion at C5-C6. No evidence of hardware compromise. Dictated by: Dictated on workstation # [id number]
== END ==
LOC: RAD 07:10
PROVIDERS: ATTEND Nurse Practitioner
DX: Z48.89 Encounter for other specified surgical aftercare (principal); M54.2 Cervicalgia; Z98.1 Arthrodesis status
CPT/HCPCS: 72050

== ENCOUNTER 2023-05-21 17:27 | Emergency (ER) | payer OTHER ==
[2023-05-21 17:30] VITALS: BP 128/89
[2023-05-21 17:50] LABS: BASOPHILS # (AUTO) 0.1 10^3/uL (0.0-0.1); BASOPHILS % (AUTO) 1 % (0-10); EOSINOPHILS # (AUTO) 0.1 10^3/uL (0.0-0.3); EOSINOPHILS % (AUTO) 1 % (0-10); HEMATOCRIT 42 % (35-52); HEMOGLOBIN 13.3 g/dL (11.5-16.0); LYMPHOCYTES # (AUTO) 1.7 10^3/uL (1.0-4.0); LYMPHOCYTES % (AUTO) 9 % (12-44); MEAN CORPUSCULAR HEMOGLOBIN 29 pg (25-34); MEAN CORPUSCULAR HGB CONC 32 g/dL (32-36); MEAN CORPUSCULAR VOLUME 91 fL (80-99); MEAN PLATELET VOLUME 9.5 fL (9.0-12.2); MONOCYTES # (AUTO) 1.4 10^3/uL (0.0-1.0); MONOCYTES % (AUTO) 7 % (0-12); NEUTROPHILS # (AUTO) 15.5 10^3/uL (1.8-7.8); NEUTROPHILS % (AUTO) 82 % (42-75); PLATELET COUNT 435 10^3/uL (130-400); WHITE BLOOD COUNT 18.8 10^3/uL (4.3-11.0)
--- NOTE | 2023-05-21 17:56 | ED GU-Female ---
General Chief Complaint: - Reproductive Stated Complaint: SENT FROM URGENT CARE/BLOOD IN URINE Nursing Triage Note: PT SENT TO ED FROM [facility] HEMATURIA. PT STATES STARTED ABOUT NOON TODAY W L SIDED PAIN SEVERE AT TIMES, VOMITING. PT HAS HX OF KIDNEY STONE AND STATES FEELS THE SAME WAY. PT STATES WAS GIVEN ZOFRAN IM AT CLINIC. PT STATES HAS BREAST AUGMENTATION YESTERDAY AND WAS GIVEN PAIN MEDS, PT IS ALSO TAKING BACTIM DS FROM SURGERY YESTERDAY. PAIN AT THIS X IS 2/10 BUT HAS SEVERE PAIN AT TIMES Source: patient Exam Limitations: no limitations History of Present Illness Date Seen by Provider: May 21, 2023 Time Seen by Provider: 17:35 Initial Comments 48-year-old female presents to the ER with complaint of left flank pain that started at noon today. She has a history of kidney stones, states that this feels like her previous kidney stones. She was seen at the [facility] walk-in clinic. They did a urinalysis which showed a lot of blood, they sent her here due to the large amount of blood in her urine. Patient reports that her urine is dark, but she does not see gross hematuria. They gave her a shot of Zofran. She reports her pain has subsided at this time. Denies fevers and dysuria. Does state that her left abdomen was tender to palpation when the provider at [facility] examined her. Patient had a breast augmentation yesterday. She is on Bactrim for the surgery and has Percocet and Valium as needed for pain. Allergies and Home Medications Allergies Uncoded Allergies: CHLORAPREP (Allergy, Unknown, RASH, 12/06/21) per patient Patient Home Medication List Home Medication List Reviewed: Yes Acetaminophen (Acetaminophen ER) 650 Mg Tablet.er, 650 MG PO DAILY PRN for HEADACHE, (Reported) Entered as Reported by: RUBI STANLEY on 06/18/17 1708 Citalopram Hydrobromide (Citalopram HBr) 20 Mg Tablet, 30 MG PO DAILY, (Reported) Entered as Reported by: TABITHA CASTILLO on 02/19/17 1930 Hydrocodone/Acetaminophen (Hydrocodone-Acetamin 7.5-325) 7.5 Mg-325 Mg Tablet, 1 EACH PO Q4H Prescribed by: BETHEL DIAS on 12/07/21 1140 Multivitamin (Multi-Vitamin Daily) 1 Each Tablet, 1 EACH PO DAILY, (Reported) Entered as Reported by: HAILEE VELASCO on 12/06/21 0921 Tamsulosin HCl (Flomax) 0.4 Mg Cap, 0.4 MG PO DAILY Prescribed by: Charissa White on 05/21/231940 Review of Systems Review of Systems Constitutional: see HPI Past Pcbaxxv-Qdjrbe-Uzoskr Hx Patient Social History Tobacco Use?: No Substance use?: No Alcohol Use?: Yes Alcohol type: Hard Liquor Alcohol Frequency: Once in a while Immunizations Up To Date Tetanus Booster (TDap): Less than 5yrs PED Vaccines UTD: Yes First/Initial COVID19 Vaccinat: SEPTEMBER 2020 Second COVID19 Vaccination Alberto: OCTOBER 2020 Third COVID19 Vaccination Date: JULY 2021 Seasonal Allergies Seasonal Allergies: No Past Medical History Surgery/Hospitalization HX: KIDNEY STONE, BREAST AUGEMENTATION, SPINAL FUSION, DISCETOMY, T AND A, HYSTERECTOMY Surgeries: Yes (HEART CATH, KNEE SCOPE LEFT, BILATERAL CUBITAL ELBOWS/WRISTS) Cardiac, Hysterectomy, Orthopedic, Tonsillectomy, Tubal Ligation Respiratory: No Cardiac: Yes (CHEST PAIN 2017 (HEART CATH)) Hypertension Neurological: Yes Headaches /Migraines Reproductive Disorders: Yes (OVARIAN MASS) Female Reproductive Disorders: Ovarian Cyst [employer] History: Hysterectomy, Tubal Ligation Sexually Transmitted Disease: No HIV/AIDS: No Genitourinary: Yes Kidney Stones Gastrointestinal: No Gall Bladder Disease Musculoskeletal: Yes (S/P KNEE SCOPE AND BACK SURGERY) Chronic Back Pain Endocrine: No HEENT: No Cancer: No Psychosocial: Yes Anxiety, Depression Integumentary: No Blood Disorders: No Adverse Reaction/Blood Tranf: No Physical Exam Vital Signs Vital Signs - First Documented 05/21/23 17:30 Temp 37.4 Pulse 83 Resp 18 B/P (MAP) 128/89 (102) Pulse Ox 100 Capillary Refill : Less Than 3 Seconds Height, Weight, BMI Height: 5'7.00" Weight: 219lbs. 2.0oz. 99.885515fv; 26.37 BMI Method:Stated General Appearance: WD/WN, no apparent distress Neck: supple, normal inspection Cardiovascular: regular rate, rhythm Respiratory: lungs clear, normal breath sounds, no respiratory distress, no accessory muscle use Gastrointestinal: normal bowel sounds, non tender, soft Back: No CVA tenderness (R); CVA tenderness (L) Extremities: normal range of motion, normal inspection Neurologic/Psychiatric: alert, normal mood/affect Skin: normal color, warm/dry Progress/Results/Core Measures Suspected Sepsis SIRS Temperature: Pulse: 83 Respiratory Rate: 18 Laboratory Tests 05/21/23 17:38: White Blood Count 18.8H Blood Pressure 128 /89 Mean: 102 Laboratory Tests 05/21/23 17:38: Creatinine 1.03, Platelet Count 435H, Total Bilirubin 0.4 Results/Orders Lab Results Laboratory Tests Test 05/21/23 17:38 05/21/23 18:43 Range/Units White Blood Count 18.8 H 4.3-11.0 10^3/uL Red Blood Count 4.61 3.80-5.11 10^6/uL Hemoglobin 13.3 11.5-16.0 g/dL Hematocrit 42 35-52 % Mean Corpuscular Volume 91 80-99 fL Mean Corpuscular Hemoglobin 29 25-34 pg Mean Corpuscular Hemoglobin Concent 32 32-36 g/dL Red Cell Distribution Width 14.8 H 10.0-14.5 % Platelet Count 435 H 130-400 10^3/uL Mean Platelet Volume 9.5 9.0-12.2 fL Immature Granulocyte % (Auto) 1 % Neutrophils (%) (Auto) 82 H 42-75 % Lymphocytes (%) (Auto) 9 L 12-44 % Monocytes (%) (Auto) 7 0-12 % Eosinophils (%) (Auto) 1 0-10 % Basophils (%) (Auto) 1 0-10 % Neutrophils # (Auto) 15.5 H 1.8-7.8 10^3/uL Lymphocytes # (Auto) 1.7 1.0-4.0 10^3/uL Monocytes # (Auto) 1.4 H 0.0-1.0 10^3/uL Eosinophils # (Auto) 0.1 0.0-0.3 10^3/uL Basophils # (Auto) 0.1 0.0-0.1 10^3/uL Immature Granulocyte # (Auto) 0.1 0.0-0.1 10^3/uL Neutrophils % (Manual) 81 % Lymphocytes % (Manual) 10 % Monocytes % (Manual) 9 % Blood Morphology Comment NORMAL Sodium Level 143 135-145 MMOL/L Potassium Level 3.2 L 3.6-5.0 MMOL/L Chloride Level 108 H 98-107 MMOL/L Carbon Dioxide Level 23 21-32 MMOL/L Anion Gap 12 5-14 MMOL/L Blood Urea Nitrogen 11 7-18 MG/DL Creatinine 1.03 0.60-1.30 MG/DL Estimat Glomerular Filtration Rate 67 BUN/Creatinine Ratio 11 Glucose Level 114 H 70-105 MG/DL Calcium Level 9.5 8.5-10.1 MG/DL Corrected Calcium 9.2 8.5-10.1 MG/DL Total Bilirubin 0.4 0.1-1.0 MG/DL Aspartate Amino Transf (AST/SGOT) 25 5-34 U/L Alanine Aminotransferase (ALT/SGPT) 35 0-55 U/L Alkaline Phosphatase 80 40-136 U/L Total Protein 7.0 6.4-8.2 GM/DL Albumin 4.4 3.2-4.5 GM/DL Lipase 21 8-78 U/L Urine Color YELLOW Urine Clarity CLEAR Urine pH 5.5 5-9 Urine Specific [place] 1.020 1.016-1.022 Urine Protein TRACE H NEGATIVE Urine Glucose (UA) NEGATIVE NEGATIVE Urine Ketones 1+ H NEGATIVE Urine Nitrite NEGATIVE NEGATIVE Urine Bilirubin 1+ H NEGATIVE Urine Urobilinogen 1.0 < = 1.0 MG/DL Urine Leukocyte Esterase TRACE H NEGATIVE Urine RBC (Auto) 3+ H NEGATIVE Urine RBC 25-50 H /HPF Urine WBC RARE /HPF Urine Squamous Epithelial Cells 2-5 /HPF Urine Crystals PRESENT H /LPF Urine Calcium Oxalate Crystals LARGE H /LPF Urine Bacteria MODERATE H /HPF Urine Casts NONE /LPF Urine Mucus NEGATIVE /LPF Urine Culture Indicated YES My Orders Orders - CHARISSA MCMAHON APRN Ua Culture If Indicated (05/21/23 17:35) Comprehensive Metabolic Panel (05/21/23 17:43) Lipase (05/21/23 17:43) Ed Iv/Invasive Line Start (05/21/23 17:43) Cbc And Automated Diff (05/21/23 17:43) Ketorolac Injection (Ketorolac Injection (05/21/23 18:00) Ns Iv 1000 Ml (Ns Iv 1000 Ml) (05/21/23 18:00) Manual Differential (05/21/23 17:38) Ct Abd/Pelvis Wo(Kidney Stone) (05/21/23 18:47) Urine Culture (05/21/23 18:43) Potassium Chloride (Tablet) (Potassium C (05/21/23 19:30) Tamsulosin Capsule (Flomax Capsule) (05/21/23 19:45) Medications Given in ED Current Medications Medications Dose Ordered Sig/Cherry Route Start Time Stop Time Status Last Admin Dose Admin Ketorolac Tromethamine 15 mg ONCE ONCE IVP 05/21/23 18:00 05/21/23 18:02 DC 05/21/23 17:59 15 MG Potassium Chloride 40 meq ONCE ONCE PO 05/21/23 19:30 05/21/23 19:31 DC 05/21/23 19:50 40 MEQ Tamsulosin HCl 0.4 mg ONCE ONCE PO 05/21/23 19:45 05/21/23 19:46 DC 05/21/23 19:50 0.4 MG Vital Signs/I&O 05/21/23 17:30 Temp 37.4 Pulse 83 Resp 18 B/P (MAP) 128/89 (102) Pulse Ox 100 Capillary Refill : Less Than 3 Seconds Blood Pressure Mean: 102 Progress Note : Progress Note Patient seen and evaluated, resting comfortably in bed, no acute distress. Based on exam and symptoms, differential diagnosis includes was not limited to pyelonephritis, nephrolithiasis, musculoskeletal pain. Work-up initially including CBC, CMP, lipase, UA. [address] reviewed. CBC shows elevated WBC 18.8, neutrophil percentage slightly elevated 82. CMP shows decreased potassium 3.2, slightly elevated chloride 108. Lipase normal. Urinalysis shows trace protein, 1+ ketones, 1+ bilirubin, trace leukocytes, 3+ RBCs, rare WBCs, 2-5 squamous epithelial cells, moderate bacteria. CT shows mild left hydronephrosis likely secondary to multiple small stones in the proximal ureter measuring up to 0.5 cm. There is also a nonobstructing stone in the right kidney. Elevated white count likely related to rest augmentation surgery that was performed yesterday. Urinalysis shows mild UTI. Patient is already on Bactrim, instructed patient to continue Bactrim. Patient already has pain medication and nausea medication at home. Will discharge with Flomax, first dose given now. Will give patient urine strainer and have her follow-up with urology. Patient stable for discharge. Discharge instructions and return precautions provided. Diagnostic Imaging Diagonstic Imaging: CT Plain Films/CT/US/NM/MRI: abdomen, pelvis Comments [facility], [place] NAME: GERALD STOVER [facility] REC#: [id number] PT STATUS: REG ER : 1975 PHYSICIAN: CHARISSA MCMAHON APRN ADMIT DATE: 05/21/23/ER Signed Date of Exam:05/21/23 CT ABD/PELVIS WO(KIDNEY STONE) EXAMINATION: CT abdomen and pelvis without contrast. TECHNIQUE: Multiple contiguous axial images were obtained through the abdomen and pelvis without the use of intravenous contrast. All CT scans use one or more of the following dose optimizing techniques: automated exposure control, MA and/or KvP adjustment based on patient size and exam type or iterative reconstruction. HISTORY: Flank pain, kidney stone suspected COMPARISON: 02/19/2017. FINDINGS: Lung bases: The lung bases are clear. Solid organs: The liver is normal. The gallbladder is surgically absent. There is no biliary ductal dilation. Pancreas is normal. Spleen is normal. Adrenal glands are normal. There is a nonobstructing 0.2 cm right renal calculus without hydronephrosis. There is mild left hydronephrosis, likely secondary to multiple stones seen within the proximal ureter measuring up to 0.5 cm. Bowel: Surgical changes of the stomach without bowel obstruction. A moderate amount of stool is seen throughout the colon. The appendix is normal. Peritoneum: There is no intraperitoneal free fluid or free air. No suspicious lymphadenopathy. Vasculature: Normal without aneurysm. Musculoskeletal: No suspicious osseous lesion or compression fracture. Pelvis: The uterus is surgically absent. No adnexal mass. The urinary bladder is normal. IMPRESSION: 1. Mild left hydronephrosis, likely secondary to multiple small stones in the proximal ureter measuring up to 0.5 cm. Dictated by: Dictated on workstation # [id number] Dict: 05/21/231899 Trans: 05/21/231909 AS6 [id number] Interpreted by: TABITHA DOUGLAS DO Electronically signed by: TABITHA DOUGLAS DO 05/21/231909 Departure Impression Primary Impression: Nephrolithiasis Disposition: 01 HOME, SELF-CARE Condition: Stable Departure-Patient Inst. Decision time for Depature: :39 Referrals: Mel JAMES MD, ADAM S DO (PCP/Family) Primary Care Physician Patient Instructions: Kidney Stones (DC) Add. Discharge Instructions: Take Flomax once a day in the evening. Continue taking your antibiotic as prescribed. Continue taking your Percocet as prescribed. Continue taking your nausea medication as prescribed. Strain your urine to catch the stone. You may take the stone to the urologist. They may test it. Call Dr. James's office to schedule a follow-up appointment. Return for inability to urinate, fever, uncontrolled pain, or any other new, concerning, or worsening symptoms. All discharge instructions reviewed with patient and/or family. Voiced understanding. Scripts Tamsulosin HCl (Flomax) 0.4 Mg Cap 0.4 MG PO DAILY for 14 Days, #14 CAP 0 Refills Prov: CHARISSA MCMAHON APRN 05/21/23 CHARISSA MCMAHON APRN May 21, 2023 17:56
[2023-05-21] MEDS ORDERED: NS IV 1000 ML 1,000 ML IV SCH (18:00)
[2023-05-21] MEDS ORDERED: KETOROLAC INJ 15 MG/ML VIAL IVP ONE (18:00)
[2023-05-21 18:07] LABS: ALBUMIN 4.4 GM/DL (3.2-4.5); POTASSIUM 3.2 MMOL/L (3.6-5.0)
[2023-05-21 18:09] LABS: CALCIUM 9.5 MG/DL (8.5-10.1)
[2023-05-21 18:10] LABS: LYMPHOCYTES % (MANUAL) 10 %; MONOCYTES % (MANUAL) 9 %; NEUTROPHILS % (MANUAL) 81 %; RBC MORPH NORMAL
[2023-05-21 18:12] LABS: BILIRUBIN,TOTAL 0.4 MG/DL (0.1-1.0)
[2023-05-21 18:13] LABS: CREATININE SERUM 1.03 MG/DL (0.60-1.30)
--- NOTE | 2023-05-21 19:08 | Diagnostic Imaging Report ---
EXAMINATION: CT abdomen and pelvis without contrast. TECHNIQUE: Multiple contiguous axial images were obtained through the abdomen and pelvis without the use of intravenous contrast. All CT scans use one or more of the following dose optimizing techniques: automated exposure control, MA and/or KvP adjustment based on patient size and exam type or iterative reconstruction. HISTORY: Flank pain, kidney stone suspected COMPARISON: 02/19/2017. FINDINGS: Lung bases: The lung bases are clear. Solid organs: The liver is normal. The gallbladder is surgically absent. There is no biliary ductal dilation. Pancreas is normal. Spleen is normal. Adrenal glands are normal. There is a nonobstructing 0.2 cm right renal calculus without hydronephrosis. There is mild left hydronephrosis, likely secondary to multiple stones seen within the proximal ureter measuring up to 0.5 cm. Bowel: Surgical changes of the stomach without bowel obstruction. A moderate amount of stool is seen throughout the colon. The appendix is normal. Peritoneum: There is no intraperitoneal free fluid or free air. No suspicious lymphadenopathy. Vasculature: Normal without aneurysm. Musculoskeletal: No suspicious osseous lesion or compression fracture. Pelvis: The uterus is surgically absent. No adnexal mass. The urinary bladder is normal. IMPRESSION: 1. Mild left hydronephrosis, likely secondary to multiple small stones in the proximal ureter measuring up to 0.5 cm. Dictated by: Dictated on workstation # [id number]
[2023-05-21 19:09] LABS: CLARITY,URINE CLEAR; COLOR,URINE YELLOW; PH,URINE 5.5 (5-9); PROTEIN,URINE TRACE (NEGATIVE)
[2023-05-21 19:10] LABS: BACTERIA,URINE MODERATE /HPF; BILIRUBIN,URINE 1+ (NEGATIVE); CALCIUM OXALATE CRYSTALS,UR LARGE /LPF; GLUCOSE, URINE (UA) NEGATIVE (NEGATIVE); KETONES,URINE 1+ (NEGATIVE); LEUKOCYTE ESTERASE ,URINE TRACE (NEGATIVE); NITRITE,URINE NEGATIVE (NEGATIVE); RBC,URINE 25-50 /HPF; WBC,URINE RARE /HPF
[2023-05-21] MEDS ORDERED: POTASSIUM CHLORIDE 20 MEQ TABLET PO ONE (19:30)
[2023-05-21] MEDS ORDERED: TMSL.4C PO (19:41)
[2023-05-21] MEDS ORDERED: TAMSULOSIN 0.4 MG (FLOMAX) CAP PO ONE (19:45)
== END 2023-05-21 19:59 | disposition home or self-care (01) ==
LOC: EDUNIT# 17:27 → ER 17:29
DX: N13.2 Hydronephrosis with renal and ureteral calculous obstruction (principal); N39.0 Urinary tract infection, site not specified; E87.6 Hypokalemia
CPT/HCPCS: 36415; 74176; 80053; 81000; 83690; 85007; 85027; 87088; 96374

== ENCOUNTER 2023-05-23 12:41 | Emergency (ER) | payer OTHER ==
[~2023-05-23] VITALS: Ht 170.1 cm; Wt 74.8 kg
[~2023-05-23 12:41] MED LIST changes: +TMSL.4C PO
[2023-05-23] MEDS ORDERED: NS IV 1000 ML 1,000 ML IV STA (12:52)
--- NOTE | 2023-05-23 13:11 | ED Abdominal Pain ---
General Chief Complaint: Abdominal/GI Problems Stated Complaint: KIDNEY STONES | VOMITING | LOWER BACK PAIN Nursing Triage Note: PT AMB TO [facility] 7 WITH CC OF LEFT FLANK PAIN AND N/V. PT WAS SEEN SATURDAY AND WAS DIAGNOISED WITH KIDNEY STONES. PT HAD BREAST AUGMENTATION DONE ON SATURDAY. Source of Information: Patient Exam Limitations: No Limitations History of Present Illness Date Seen by Provider: May 23, 2023 Time Seen by Provider: 13:09 Initial Comments Patient is a 48-year-old female who presents ED with left flank pain. Patient states symptoms started this past Saturday. She was seen here in the ED diagnosed with kidney stones. She did have a breast augmentation done on Saturday. She was discharged with Flomax which she has been taking as well as her Percocet for her augmentation. She states the oral pain medication seems to not be helping with the pain. Pain is intermittent described as sharp radiation to the left lower quadrant. She states she has vomited 2 or 3 times has not been able to eat or drink as much. History of kidney stones. She denies of any pain with urination frequent urination or obvious dark urine. She denies chest pain, shortness of breath, diarrhea, fever, chills. She is scheduled to follow-up with Dr. Mathew urology on June 13 Allergies and Home Medications Allergies Uncoded Allergies: CHLORAPREP (Allergy, Unknown, RASH, 12/06/21) per patient Patient Home Medication List Home Medication List Reviewed: Yes Acetaminophen (Acetaminophen ER) 650 Mg Tablet.er, 650 MG PO DAILY PRN for HEADACHE, (Reported) Entered as Reported by: RUBI STANLEY on 06/18/17 1708 Citalopram Hydrobromide (Citalopram HBr) 20 Mg Tablet, 30 MG PO DAILY, (Reported) Entered as Reported by: TABITHA CASTILLO on 02/19/17 1930 Hydrocodone/Acetaminophen (Hydrocodone-Acetamin 7.5-325) 7.5 Mg-325 Mg Tablet, 1 EACH PO Q4H Prescribed by: BETHEL DIAS on 12/07/21 1140 Ketorolac Tromethamine (Ketorolac Tromethamine) 10 Mg Tablet, 10 MG PO TID Prescribed by: VICK TORRES on 05/23/23 1421 Multivitamin (Multi-Vitamin Daily) 1 Each Tablet, 1 EACH PO DAILY, (Reported) Entered as Reported by: HAILEE Carter KRISTA on 12/06/21 0921 Tamsulosin HCl (Flomax) 0.4 Mg Cap, 0.4 MG PO DAILY Prescribed by: Charissa White on 05/21/231940 Review of Systems Review of Systems Constitutional: No chills, No diaphoresis EENTM: No Double Vision, No Eye Pain Respiratory: Denies Cough, Denies Orthopnea Cardiovascular: Denies Chest Pain Gastrointestinal: Abdominal Pain; Denies Diarrhea; Nausea, Vomiting Genitourinary: Denies Burning, Denies Discharge Musculoskeletal: No back pain, No joint pain Skin: No change in color, No change in hair/nails Past Zmzajki-Zjvzpr-Jozlnt Hx Patient Social History Tobacco Use?: No Substance use?: Yes Substance type: Marijuana Alcohol Use?: Yes Alcohol Frequency: Once in a while Immunizations Up To Date Tetanus Booster (TDap): Less than 5yrs PED Vaccines UTD: Yes First/Initial COVID19 Vaccinat: SEPTEMBER 2020 Second COVID19 Vaccination Alberto: OCTOBER 2020 Third COVID19 Vaccination Date: JULY 2021 Seasonal Allergies Seasonal Allergies: No Past Medical History Surgery/Hospitalization HX: KIDNEY STONE, BREAST AUGEMENTATION, SPINAL FUSION, DISCETOMY, T AND A, HYSTERECTOMY Surgeries: Yes (HEART CATH, KNEE SCOPE LEFT, BILATERAL CUBITAL ELBOWS/WRISTS) Cardiac, Hysterectomy, Orthopedic, Tonsillectomy, Tubal Ligation Respiratory: No Cardiac: Yes (CHEST PAIN 2017 (HEART CATH)) Hypertension Neurological: Yes Headaches /Migraines Reproductive Disorders: Yes (OVARIAN MASS) Female Reproductive Disorders: Ovarian Cyst BATH TESTER History: Hysterectomy, Tubal Ligation Sexually Transmitted Disease: No HIV/AIDS: No Genitourinary: Yes Kidney Stones Gastrointestinal: No Gall Bladder Disease Musculoskeletal: Yes (S/P KNEE SCOPE AND BACK SURGERY) Chronic Back Pain Endocrine: No HEENT: No Cancer: No Psychosocial: Yes Anxiety, Depression Integumentary: No Blood Disorders: No Adverse Reaction/Blood Tranf: No Physical Exam Vital Signs Vital Signs - First Documented 05/23/23 13:01 Temp 36.9 Pulse 96 B/P (MAP) 139/91 (107) Pulse Ox 99 O2 Delivery Room Air Capillary Refill : Height/Weight/BMI Height: 5'7.00" Weight: 219lbs. 2.0oz. 99.843164jp; 25.00 BMI Method:Stated General Appearance: WD/WN, no apparent distress HEENT: PERRL/EOMI, normal ENT inspection, TMs normal, pharynx normal Neck: non-tender, full range of motion, supple Respiratory: chest non-tender, lungs clear, normal breath sounds, no respiratory distress, no accessory muscle use Cardiovascular: regular rate, rhythm, no edema, no gallop, no JVD Gastrointestinal: normal bowel sounds, non tender, soft, no organomegaly Extremities: normal range of motion, non-tender, normal inspection, no pedal edema Back: CVA tenderness (L) Neurologic/Psychiatric: lvn II-XII nml as tested, no motor/sensory deficits, alert, normal mood/affect, oriented x 3 Skin: normal color, warm/dry Progress/Results/Core Measures Results/Orders Lab Results Laboratory Tests Test 05/23/23 12:56 05/23/23 13:10 Range/Units Urine Color YELLOW Urine Clarity CLEAR Urine pH 6.0 5-9 Urine Specific Valliant 1.015 L 1.016-1.022 Urine Protein NEGATIVE NEGATIVE Urine Glucose (UA) NEGATIVE NEGATIVE Urine Ketones NEGATIVE NEGATIVE Urine Nitrite NEGATIVE NEGATIVE Urine Bilirubin NEGATIVE NEGATIVE Urine Urobilinogen 1.0 < = 1.0 MG/DL Urine Leukocyte Esterase TRACE H NEGATIVE Urine RBC (Auto) 3+ H NEGATIVE Urine RBC 2-5 H /HPF Urine WBC 0-2 /HPF Urine Squamous Epithelial Cells 2-5 /HPF Urine Crystals NONE /LPF Urine Bacteria TRACE /HPF Urine Casts NONE /LPF Urine Mucus NEGATIVE /LPF Urine Culture Indicated NO White Blood Count 12.0 H 4.3-11.0 10^3/uL Red Blood Count 4.12 3.80-5.11 10^6/uL Hemoglobin 12.0 11.5-16.0 g/dL Hematocrit 37 35-52 % Mean Corpuscular Volume 90 80-99 fL Mean Corpuscular Hemoglobin 29 25-34 pg Mean Corpuscular Hemoglobin Concent 32 32-36 g/dL Red Cell Distribution Width 15.0 H 10.0-14.5 % Platelet Count 342 130-400 10^3/uL Mean Platelet Volume 9.2 9.0-12.2 fL Immature Granulocyte % (Auto) 0 % Neutrophils (%) (Auto) 71 42-75 % Lymphocytes (%) (Auto) 17 12-44 % Monocytes (%) (Auto) 7 0-12 % Eosinophils (%) (Auto) 4 0-10 % Basophils (%) (Auto) 1 0-10 % Neutrophils # (Auto) 8.6 H 1.8-7.8 10^3/uL Lymphocytes # (Auto) 2.0 1.0-4.0 10^3/uL Monocytes # (Auto) 0.8 0.0-1.0 10^3/uL Eosinophils # (Auto) 0.5 H 0.0-0.3 10^3/uL Basophils # (Auto) 0.1 0.0-0.1 10^3/uL Immature Granulocyte # (Auto) 0.1 0.0-0.1 10^3/uL Sodium Level 141 135-145 MMOL/L Potassium Level 3.6 3.6-5.0 MMOL/L Chloride Level 107 98-107 MMOL/L Carbon Dioxide Level 25 21-32 MMOL/L Anion Gap 9 5-14 MMOL/L Blood Urea Nitrogen 8 7-18 MG/DL Creatinine 0.77 0.60-1.30 MG/DL Estimat Glomerular Filtration Rate 95 BUN/Creatinine Ratio 10 Glucose Level 88 70-105 MG/DL Calcium Level 9.2 8.5-10.1 MG/DL Corrected Calcium 9.2 8.5-10.1 MG/DL Total Bilirubin 0.4 0.1-1.0 MG/DL Aspartate Amino Transf (AST/SGOT) 15 5-34 U/L Alanine Aminotransferase (ALT/SGPT) 23 0-55 U/L Alkaline Phosphatase 72 40-136 U/L Total Protein 6.5 6.4-8.2 GM/DL Albumin 4.0 3.2-4.5 GM/DL Lipase 18 8-78 U/L My Orders Orders - GODFREY EMMANUEL Ua Culture If Indicated (05/23/23 12:50) Cbc And Automated Diff (05/23/23 12:52) Comprehensive Metabolic Panel (05/23/23 12:52) Lipase (05/23/23 12:52) Ns Iv 1000 Ml (Ns Iv 1000 Ml) (05/23/23 12:52) Ketorolac Injection (Ketorolac Injection (05/23/23 13:15) Ondansetron Injection (Ondansetron Inj (05/23/23 13:15) Abdomen/Kub 1view (05/23/23 13:08) Medications Given in ED Current Medications Medications Dose Ordered Sig/Cherry Route Start Time Stop Time Status Last Admin Dose Admin Ketorolac Tromethamine 30 mg ONCE ONCE IVP 05/23/23 13:15 05/23/23 13:16 DC 05/23/23 13:15 30 MG Ondansetron HCl 4 mg ONCE ONCE IVP 05/23/23 13:15 05/23/23 13:16 DC 05/23/23 13:15 4 MG Vital Signs/I&O 05/23/23 13:01 Temp 36.9 Pulse 96 B/P (MAP) 139/91 (107) Pulse Ox 99 O2 Delivery Room Air Blood Pressure Mean: 107 Departure Communication (PCP) Patient is a 48-year-old female who presents to ED with left flank pain. Vick blackwell was seen here 2 days ago had a CT abdomen pelvis which showed multiple stone in the proximal ureter measuring up to 0.5 cm. Mild left hydronephrosis. She was discharged with Flomax. She has Percocet at home secondary to augmentation on Saturday. She has been having intermittent vomiting with continued pain and intermittent. No pain with urination frequent urination passing of large clots or current pain at this time. Pain does radiate to the left flank. She does not appear toxic or septic. CBC, CMP, urinalysis KUB was ordered. She was started a liter of fluid. Patient Was given Toradol as pain did develop here with improvement. Urinalysis with red blood cells without strong evidence of infection. CBC, CMP was grossly unremarkable besides slight elevated white blood count of 12. She is currently pain-free. She did have a liter of fluid here. KUB did not show any obvious stone. Somewhat limited. discussed these results with patient. Further evaluation with CT scan however at this time since she has pain-free with reassuring lab work imaging was held as I suspect she likely has a smaller stone. Discussed with patient typically anything below 5 mm will pass. She does have a follow-up with Dr. Mathew urology on June 13. At this time will discharge with ketorolac. She does have nausea medication at home. Recommend staying hydrated. If any worsening s ymptoms such as severe pain, uncontrollable vomiting, decreased urine output to return back to ED. Discussed contacting your urology for sooner follow-up. Impression Primary Impression: Left flank pain Disposition: HOME, SELF-CARE Condition: Stable Departure-Patient Inst. Decision time for Depature: 14:20 Referrals: CEZAR RUSSO DO (PCP/Family) Primary Care Physician Patient Instructions: Flank Pain ED Add. Discharge Instructions: Continue drinking plenty of fluids. May add ketorolac to your pain medication. Recommend staying hydrated. If any worsening symptoms return back to ED. Follow-up with urology. All discharge instructions reviewed with patient and/or family. Voiced understanding. Scripts Ketorolac Tromethamine (Ketorolac Tromethamine) 10 Mg Tablet 10 MG PO TID, #15 TAB Prov: GODFREY EMMANUEL 05/23/23 GODFREY EMMANUEL May 23, 2023 13:11
[2023-05-23] MEDS ORDERED: KETOROLAC INJ 30 MG/ML VIAL IVP ONE (13:15)
[2023-05-23] MEDS ORDERED: ONDANSETRON INJECTION 4 MG/2 ML (SDV) IVP ONE (13:15)
[2023-05-23 13:18] LABS: BASOPHILS # (AUTO) 0.1 10^3/uL (0.0-0.1); BASOPHILS % (AUTO) 1 % (0-10); EOSINOPHILS # (AUTO) 0.5 10^3/uL (0.0-0.3); EOSINOPHILS % (AUTO) 4 % (0-10); HEMATOCRIT 37 % (35-52); LYMPHOCYTES % (AUTO) 17 % (12-44); MEAN CORPUSCULAR HEMOGLOBIN 29 pg (25-34); MEAN CORPUSCULAR HGB CONC 32 g/dL (32-36); MEAN CORPUSCULAR VOLUME 90 fL (80-99); MEAN PLATELET VOLUME 9.2 fL (9.0-12.2); MONOCYTES # (AUTO) 0.8 10^3/uL (0.0-1.0); MONOCYTES % (AUTO) 7 % (0-12); NEUTROPHILS # (AUTO) 8.6 10^3/uL (1.8-7.8); NEUTROPHILS % (AUTO) 71 % (42-75); PLATELET COUNT 342 10^3/uL (130-400)
[2023-05-23 13:26] LABS: BACTERIA,URINE TRACE /HPF; BILIRUBIN,URINE NEGATIVE (NEGATIVE); CLARITY,URINE CLEAR; COLOR,URINE YELLOW; GLUCOSE, URINE (UA) NEGATIVE (NEGATIVE); KETONES,URINE NEGATIVE (NEGATIVE); LEUKOCYTE ESTERASE ,URINE TRACE (NEGATIVE); NITRITE,URINE NEGATIVE (NEGATIVE); PROTEIN,URINE NEGATIVE (NEGATIVE); WBC,URINE 0-2 /HPF
[2023-05-23 13:27] LABS: POTASSIUM 3.6 MMOL/L (3.6-5.0)
[2023-05-23 13:28] LABS: CALCIUM 9.2 MG/DL (8.5-10.1)
[2023-05-23 13:29] LABS: TOTAL PROTEIN 6.5 GM/DL (6.4-8.2)
[2023-05-23 13:31] LABS: BILIRUBIN,TOTAL 0.4 MG/DL (0.1-1.0)
[2023-05-23 13:32] LABS: CREATININE SERUM 0.77 MG/DL (0.60-1.30)
--- NOTE | 2023-05-23 13:58 | Diagnostic Imaging Report ---
CLINICAL INDICATION: Patient with left leg pain. Patient has bilateral kidney stones but pain on left side today. EXAM: X-ray of the abdomen with multiple supine views. COMPARISON: X-ray of the abdomen dated 02/19/2017. CT scan of the abdomen and pelvis without contrast dated 05/21/2023. FINDINGS: The previously seen stone within the left UPJ region is not delineated on this exam, could be possibly due to overlying bowel gas obscuring it versus it being resolved. There is no stone seen overlying the expected region of the ureters. Previously seen small stone in the right kidney is not visualized on this exam likely due to its small size. Small phleboliths in the left pelvis are seen. There is bowel gas overlying the pelvis, which limits evaluation. There is no intestinal obstruction. Surgical clips are seen overlying the right upper quadrant which could be related to cholecystectomy changes. There are gastroplasty changes with suture overlying the left upper quadrant. Multiple surgical clips in the pelvis are seen. IMPRESSION: 1: The previously seen stone in the left UPJ region is not visualized on this exam. The stone is either resolved or is below visibility on this radiograph. If necessary, CT scan would better evaluate. 2: There is no intestinal obstruction. Dictated by: Dictated on workstation # [id number]
[2023-05-23] MEDS ORDERED: KETO10TA PO (14:21)
[2023-05-23 14:31] VITALS: BP 126/84
== END 2023-05-23 14:35 | disposition home or self-care (01) ==
LOC: EDUNIT# 12:41 → ER 12:43
DX: R10.32 Left lower quadrant pain (principal); Z87.442 Personal history of urinary calculi
CPT/HCPCS: 36415; 74018; 80053; 81000; 83690; 85025; 96361; 96374; 96375

== ENCOUNTER → 2023-06-13 | Outpatient (CLI) | payer OTHER ==
[~2023-06-13] MED LIST changes: +KETO10TA PO
--- NOTE | 2023-06-13 14:43 | Diagnostic Imaging Report ---
PROCEDURE: US Renal Bilateral. TECHNIQUE: Multiple real-time grayscale images were obtained over the kidneys in various projections bilaterally. INDICATION: Calculus of ureter COMPARISON: CT abdomen pelvis of 05/21/2023 FINDINGS: The right kidney measures 11 cm in length. No hydronephrosis or echogenic renal stones. No right-sided renal mass. Left kidney measures 10 cm in length. There is mild dilation of the renal sinus fat and minimal blunting of the major calyces. No cortical thinning. No echogenic renal stones are seen within the kidney itself. There is a 0.6 cm stone in the proximal left ureter in a similar position to CT of 05/21/2023. Urinary bladder is normally filled without wall thickening. IMPRESSION: 1. There remains mild left hydronephrosis due to a 0.6 cm stone in the proximal left ureter. Dictated by: Dictated on workstation # [id number]
== END ==
LOC: RAD 09:05
PROVIDERS: ATTEND Specialist
DX: N13.2 Hydronephrosis with renal and ureteral calculous obstruction (principal)
CPT/HCPCS: 76770

== ENCOUNTER 2023-07-02 05:32 | Outpatient (CLI) | payer OTHER ==
[~2023-07-02] VITALS: Ht 170.2 cm; Wt 77.3 kg
== END 2023-07-02 13:15 | disposition home or self-care (01) ==
LOC: PREOP 05:32
PROVIDERS: ATTEND Specialist
DX: Z01.818 Encounter for other preprocedural examination (principal)

== ENCOUNTER 2023-07-09 08:19 | Day surgery (SDC) | payer OTHER ==
[~2023-07-09] VITALS: Ht 170.2 cm; Wt 77.3 kg
[2023-07-09] VITALS (11 sets, daily range): BP systolic 108–129; BP diastolic 75–85
[2023-07-09] MEDS ORDERED: LACTATED RINGERS 1,000 ML 1,000 ML IV PRN (08:45)
[2023-07-09] MEDS ORDERED: proPOfol INJECTION 200 MG/20 ML VIAL IV ONE (09:18)
[2023-07-09] MEDS ORDERED: fentaNYL INJECTION 100 MCG/2 ML VIAL ONE (09:18)
[2023-07-09] MEDS ORDERED: MIDAZOLAM INJ 2 MG/2 ML VIAL ONE (09:18)
[2023-07-09] MEDS ORDERED: dexAMETHasone INJ 10 MG/ML 1 ML VIAL ONE (09:18)
[2023-07-09] MEDS ORDERED: ONDANSETRON INJECTION 4 MG/2 ML (SDV) ONE (09:18)
[2023-07-09] MEDS ORDERED: LIDOCAINE PF 2% 5 ML VIAL ONE (09:18)
--- NOTE | 2023-07-09 09:29 | Progress Note-Pre Operative ---
Pre-Operative Progress Note Date of Available H&P: Jul 08, 2023 Date H&P Reviewed: Jul 09, 2023 Time H&P Reviewed: 09:00 History & Physical: H&P Reviewed, No changes noted Pre-Operative Diagnosis: left ureter stone Mel JAMES MD Jul 09, 2023 09:29
[2023-07-09] MEDS: IOHEXOL 300 MG/ML 30 ML (OMNIPAQUE 300) VIAL INJ ONE (11:10)
[2023-07-09] MEDS ORDERED: SEVOFLURANE (ULTANE) 15 ML INHAL SOLN ONE (11:33)
[2023-07-09] MEDS ORDERED: morphine INJ 10 MG/ML 1ML (SYR OR VIAL) IVP ONE (12:00)
[2023-07-09] MEDS ORDERED: ONDANSETRON INJECTION 4 MG/2 ML (SDV) IVP PRN (12:00)
--- NOTE | 2023-07-09 12:06 | Progress Note-Post Operative ---
Post-Operative Progess Note Surgeon (s)/School Psychologist (s) Surgeon Mel JAMES MD School Psychologist n/a Pre-Operative Diagnosis left ureter stone Post-Operative Diagnosis same Post-Op Procedure Note Date of Procedure: Jul 09, 2023 Name of Procedure Performed: cystoscopy, left retrograde pyelogram, ureteroscopy, stone manipulation and ureter stent placement Description & Findings Description and Findings: n/a Anesthesia Type gen Estimated Blood Loss minimal Packing none. Specimen(s) collected/removed left ureter stone Mel JAMES MD Jul 09, 2023 12:06
--- NOTE | 2023-07-09 12:08 | Discharge Inst-Urology ---
Discharge Inst-Urology Patient Instructions/Follow Up Plan/Assessment/Instructions Please make appointment to been seen in office in 7-10 days for cysto/stent removal Increase oral fluids for 48 hours and then as needed. Diet and Activity as tolerated. If questions or concerns contact your physician Or seek help at emergency department. Mel JAMES MD Jul 09, 2023 12:08
--- NOTE | 2023-07-09 14:08 | Anesthesia-General Post-Op ---
General Patient Condition Mental Status/LOC: Same as Preop Cardiovascular: Satisfactory Nausea/Vomiting: Absent Respiratory: Satisfactory Pain: Controlled Complications: Absent Post Op Complications Complications None Follow Up Care/Instructions Patient Instructions None needed. Anesthesia/Patient Condition Patient Condition Patient was doing well after the procedure with no complaints, stable vital signs, no apparent adverse anesthesia problems. No complications reported per nursing. BRIDGET NELSON DO Jul 09, 2023 14:08
--- NOTE | 2023-07-09 16:48 | Diagnostic Imaging Report ---
INDICATION: Left renal stent placement COMPARISON: None available. IMPRESSION: Images show contrast opacifying the left ureter and ultimate placement of a nephroureteral stent. Air Kerma is 12.96 mGy. Please see procedure report for more details. Dictated by: Dictated on workstation # [id number]
--- NOTE | 2023-07-09 18:57 | OPERATIVE REPORT ---
DATE OF SERVICE: 07/09/2023 PREOPERATIVE DIAGNOSIS: Left upper ureter stone. POSTOPERATIVE DIAGNOSIS: Left upper ureter stone. PROCEDURE PERFORMED: Cystoscopy, left retrograde pyelogram, flexible ureteroscopy, stone manipulation, and stent placement. DRAINS: A 6 Georgian 26-cm left double-J ureteral stent. SPECIMENS: Stone fragments for analysis. FINDINGS: On retrograde pyelogram were normal distal ureter and in the proximal ureter just distal to the ureteropelvic junction where there was a filling defect consistent with stone. Minimal hydronephrosis. DESCRIPTION OF PROCEDURE: After informed consent was obtained, general anesthetic was administered. The patient received IV Levaquin. She was then prepped and draped in dorsal lithotomy position. Cystoscopy with a 21 Georgian cystoscope sheath and 30-degree lens were performed. She had normal ureteral orifices. No bladder tumors or stones. Left retrograde pyelogram was performed with an 8 Georgian cone-tipped catheter with findings as noted above. Two[ ] guidewires were passed easily past the stone, coiling in the upper pole of the kidney under fluoroscopy. The rigid ureteroscope was first inserted and met some resistance in the distal ureter. Inner sheath of a 11 Georgian ureteral access sheath was used to pass to dilate the distal ureter. The ureteroscope was then reinserted and was able to pass proximally. There was some stone fragments noted, but no sizable stones. A ureteral access sheath was then inserted and the obturator removed. This passed easily into the proximal ureter. The working wire and the ureteral obturator were removed. Disposable flexible ureteroscope was inserted, this passed easily, in the renal pelvis was noted to be a stone. This was grasped with a Jose basket and extracted. The stone was very soft and fractured easily with the basket. Panendoscopy of the intrarenal collecting system showed no other sizable stones [ ] some tiny fragments. Ureteroscope and ureteral access sheath were removed in tandem. The ureter appeared uninjured. Due to the need to dilate, the cystoscope was then backloaded onto the safety wire and a 6 Georgian 26 cm double-J ureteral stent was then fed over the wire, coiling in the renal pelvis under fluoroscopy in the bladder under direct vision after the wire was removed. The patient was then awakened from anesthesia and taken to recovery room. She will be discharged home and resume her Toradol and Flomax. She will follow up in my office in 7-10 days for cystoscopy and stent removal. Job ID: [id number] DocumentID: [id number] Dictated Date: 07/09/2023 11:56:54 Multimedia Coordinator Date: 07/09/2023 18:55:00 Dictated By: Karyna JAMES MD
== END 2023-07-09 13:37 | disposition home or self-care (01) ==
LOC: SDC 08:19
PROVIDERS: ATTEND Specialist
DX: N20.1 Calculus of ureter (principal)
CPT/HCPCS: 52332; 52352; 76000; 87081; C1769; C1894; C2617